=== PATIENT | male | born 1960 | race Caucasian/White ===

== ENCOUNTER 2018-08-04 06:57 | Day surgery (SDC) | payer OTHER ==
[~2018-08-04 06:57] MED LIST: Lactated Ringers 1,000 ML IV SCH
--- NOTE | 2018-08-04 07:44 | PCM.PREANE ---
Preanesthetic Assessment - Anesthesia/Transfusion/Family Hx Anesthesia History: Prior Anesthesia Without Reaction Family History of Anesthesia Reaction: No Transfusion History: No Prior Transfusion(s) Intubation History: Unknown - Review of Systems General: No Symptoms Pulmonary: No Symptoms Cardiovascular: No Symptoms Gastrointestinal: Difficulty Swallowing Neurological: No Symptoms Other: Reports: None - Physical Assessment O2 Sat by Pulse Oximetry: 97 Respiratory Rate: 16 Vital Signs: Last Vital Signs Temp 36.4 C 08/04/18 07:21 Pulse 57 L 08/04/18 07:21 Resp 16 08/04/18 07:21 BP 113/70 08/04/18 07:21 Pulse Ox 97 08/04/18 07:21 Height: 1.88 m Weight: 93.894 kg ASA Class: 2 Mental Status: Alert & Oriented x3 Airway Class: Mallampati = 2 Dentition: Reports: Normal Dentition, Romney(s) (x1 upper front) Thyro-Mental Finger Breadths: 3 Mouth Opening Finger Breadths: 3 ROM/Head Extension: Full Lungs: Clear to Auscultation, Normal Respiratory Effort Cardiovascular: Regular Rate, Regular Rhythm - Allergies Allergies/Adverse Reactions: Allergies Allergy/AdvReac Type Severity Reaction Status Date / Time No Known Allergies Allergy Verified 08/01/18 11:27 - Blood Blood Available: No - Anesthesia Plan Pre-Op Medication Ordered: None - Acknowledgements Anesthesia Type Planned: MAC Pt an Appropriate Candidate for the Planned Anesthesia: Yes Alternatives and Risks of Anesthesia Discussed w Pt/Guardian: Yes Pt/Guardian Understands and Agrees with Anesthesia Plan: Yes PreAnesthesia Questionnaire HEENT History: Reports: Allergic Rhinitis, Other (See Below) Other HEENT History: wears glasses, hx of dysphagia, has upper and lower partial dentures (permanent) Cardiovascular History: Reports: High Cholesterol, Other (See Below) Other Cardiovascular History: hx of Rheumatic fever Gastrointestinal History: Reports: GERD, Other (See Below) (h/o intestinal inflamation 4 years ago, now difficulty swallowing) Musculoskeletal History: Reports: Arthritis, Fracture Other Musculoskeletal History: hx of arthritis in shoulders, hx of fx right hand and left ankle (no hardware) Dermatologic History: Reports: Eczema - Past Surgical History GI Surgical History: Reports: Colonoscopy - SUBSTANCE USE Smoking Status *Q: Former Smoker Tobacco Use Within Last Twelve Months: No Recreational Drug Use History: Yes - HOME MEDS Home Medications: Home Meds Ciclopirox/Ure/Camph/Menth/Euc [Ciclopirox 8% Treatment Kit] 1 applic TOP ASDIRECTED 08/01/18 [History] Fluticasone Propionate [Flovent HFA] 2 spray NASBOTH BID PRN 08/01/18 [History] Meloxicam 15 mg PO DAILY PRN 08/01/18 [History] Omeprazole 40 mg PO DAILY 08/01/18 [History] Sildenafil Citrate [Sildenafil] 20 mg PO ASDIRECTED PRN 08/01/18 [History] - CURRENT (IN HOUSE) MEDS Current Meds: Current Medications Lactated Ringer's (Ringers, Lactated) 1,000 mls @ 125 mls/hr IV ASDIRECTED [facility] Last Admin: 08/04/18 07:24 Dose: 125 mls/hr
[2018-08-04] MEDS ORDERED: Midazolam 1 MG/ML 2 ML SDV ONE (09:06)
[2018-08-04] MEDS ORDERED: fentaNYL 100 MCG/2 ML SDV ONE (09:07)
[2018-08-04] MEDS ORDERED: Propofol 200 MG/20 ML SDV ONE (09:08)
[2018-08-04] MEDS ORDERED: Lidocaine 2% 5 ML SDV ONE (09:09)
[2018-08-04] MEDS ORDERED: Lactated Ringers 1,000 ML IV SCH (09:30)
--- NOTE | 2018-08-04 09:32 | PCM.OPNOTE ---
- General Post-Op/Procedure Note Date of Surgery/Procedure: 08/04/18 Operative Procedure(s): Esophagogastroduodenoscopy with gastric esophageal ulcer and mid esophageal biopsies Pre Op Diagnosis: Progressive dysphasia. Post-Op Diagnosis: Cljz-vn-xdrbdxyh gastritis. Distal esophageal ulcer. Changes suggestive of Pang's esophagus extending up to 30 cm from the incisors. Anesthesia Technique: MAC (ASA II) Primary Surgeon: Cristino Rosas Condition: Good Free Text/Narrative:: DICTATION [id number] CPT CODE [id number]
[2018-08-04 09:53] VITALS: BP 119/77
--- NOTE | 2018-08-04 12:13 | OR ---
SURGEON: Cristino Rosas M.D. DATE OF PROCEDURE: 08/04/2018 OPERATIONS PERFORMED: Esophagogastroduodenoscopy with gastric biopsies, biopsy of esophageal ulcer, and biopsy of esophagus at 30 cm. PREOPERATIVE DIAGNOSIS: Dysphagia with frequent food regurgitation. POSTOPERATIVE DIAGNOSES: 1. Oavp-oy-jknvdxti gastritis. 2. Esophageal ulcer. 3. Changes suggestive of Pang esophagus. DESCRIPTION OF PROCEDURE: The patient was taken to the endoscopy room and positioned on the endoscopy table in the supine position. Time-out was called for appropriate identification of patient and procedure. Monitored anesthesia care was provided. The bite block was placed between the patient's teeth. The gastroscope was inserted through the bite block into the oropharynx and advanced without difficulty through the esophagus and stomach into the duodenum where examination was carried out in a retrograde fashion. There was no obstruction to passage of the scope; therefore, no significant esophageal stricture. The duodenum shows no acute inflammatory changes or ulcerations. Stomach does show ojin-os-tytfxycf chronic gastritis. Antral biopsies were obtained to look for the presence of Helicobacter pylori. The gastroscope was retroflexed to visualize the proximal stomach. There was no significant hiatal hernia. The gastroscope was straightened and slowly withdrawn, carefully visualizing the greater and lesser curvatures. No ulcers or tumors were noted. The gastroscope was withdrawn into the distal esophagus where an esophageal ulcer was noted. Biopsies of this area were obtained. The patient does demonstrate significant columnarization of the distal esophagus, and there does not appear to be any significant squamous epithelium at that level. The squamocolumnar junction is at 30 cm and separate biopsies of this area were obtained. The more proximal esophagus shows healthy appearing mucosa. Despite multiple attempts, I was not able to visualize the vocal cords. The gastroscope was then withdrawn. The patient tolerated the procedure well and was taken to recovery room in stable condition. CINDY / DENA /[id number]
== END 2018-08-04 10:11 | disposition home or self-care (01) ==
LOC: MW.SDS 06:57
PROVIDERS: ATTEND Surgery
DX: K22.10 Ulcer of esophagus without bleeding (principal); K29.50 Unspecified chronic gastritis without bleeding; B96.81 Helicobacter pylori [H. pylori] as the cause of diseases classified elsewhere; K21.9 Gastro-esophageal reflux disease without esophagitis; E78.00 Pure hypercholesterolemia, unspecified; Z87.891 Personal history of nicotine dependence; Z79.899 Other long term (current) drug therapy
CPT/HCPCS: 43239; J2001; J2250; J2704; J3010; J7120; 88305; 88312

== ENCOUNTER 2018-12-19 10:33 | Day surgery (SDC) | payer OTHER ==
[~2018-12-19 10:33] MED LIST changes: +Midazolam 1 MG/ML 2 ML SDV ONE; +Ondansetron 4 MG/2 ML SDV ONE; +Propofol 200 MG/20 ML SDV ONE; +Sodium Chloride 0.9% 1,000 ML IV ONE; +fentaNYL 100 MCG/2 ML SDV ONE
--- NOTE | 2018-12-19 11:37 | PCM.PREANE ---
Preanesthetic Assessment - Anesthesia/Transfusion/Family Hx Anesthesia History: Prior Anesthesia Without Reaction Family History of Anesthesia Reaction: No Transfusion History: No Prior Transfusion(s) Intubation History: Unknown - Review of Systems General: No Symptoms Pulmonary: No Symptoms Cardiovascular: No Symptoms Gastrointestinal: Difficulty Swallowing Neurological: No Symptoms Other: Reports: None - Physical Assessment O2 Sat by Pulse Oximetry: 94 Respiratory Rate: 16 Vital Signs: Last Vital Signs Temp 36.0 C 12/19/18 11:12 Pulse 60 12/19/18 11:12 Resp 16 12/19/18 11:12 BP 115/73 12/19/18 11:12 Pulse Ox 94 L 12/19/18 11:12 Height: 6 ft 2 in Weight: 95.254 kg ASA Class: 2 Mental Status: Alert & Oriented x3 Airway Class: Mallampati = 2 Dentition: Reports: Normal Dentition Thyro-Mental Finger Breadths: 3 Mouth Opening Finger Breadths: 2 ROM/Head Extension: Full Lungs: Clear to Auscultation, Normal Respiratory Effort Cardiovascular: Regular Rate, Regular Rhythm - Allergies Allergies/Adverse Reactions: Allergies Allergy/AdvReac Type Severity Reaction Status Date / Time No Known Allergies Allergy Verified 12/19/18 11:09 - Blood Blood Available: No - Anesthesia Plan Pre-Op Medication Ordered: None - Acknowledgements Anesthesia Type Planned: MAC Pt an Appropriate Candidate for the Planned Anesthesia: Yes Alternatives and Risks of Anesthesia Discussed w Pt/Guardian: Yes Pt/Guardian Understands and Agrees with Anesthesia Plan: Yes PreAnesthesia Questionnaire HEENT History: Reports: Allergic Rhinitis, Other (See Below) Other HEENT History: wears glasses, hx of dysphagia, has upper and lower partial dentures (permanent) Cardiovascular History: Reports: High Cholesterol, Other (See Below) Other Cardiovascular History: hx of Rheumatic fever Gastrointestinal History: Reports: GERD, Helicobacter Pylori, Other (See Below) Other Gastrointestinal History: hx of esophageal ulcer, suggestive Berett's esophagus Musculoskeletal History: Reports: Arthritis, Fracture Other Musculoskeletal History: hx of arthritis in shoulders, hx of fx right hand and left ankle (no hardware) Dermatologic History: Reports: Eczema - Past Surgical History GI Surgical History: Reports: Colonoscopy, EGD (07/25) - SUBSTANCE USE Smoking Status *Q: Former Smoker (quit 25 years ago) Tobacco Use Within Last Twelve Months: No Recreational Drug Use History: No - HOME MEDS Home Medications: Home Meds Fluticasone Propionate [Flovent HFA] 2 spray NASBOTH BID PRN 08/01/18 [History] Meloxicam 15 mg PO DAILY PRN 08/01/18 [History] Omeprazole 40 mg PO DAILY 08/01/18 [History] Sildenafil Citrate 20 mg PO ASDIRECTED PRN 08/01/18 [History] - CURRENT (IN HOUSE) MEDS Current Meds: Current Medications Lactated Ringer's (Ringers, Lactated) 1,000 mls @ 125 mls/hr IV ASDIRECTED [facility] Last Admin: 12/19/18 11:08 Dose: 125 mls/hr Discontinued Medications Fentanyl (Sublimaze) Confirm Administered Dose 100 mcg .ROUTE .STK-MED ONE Stop: 12/19/18 07:54 Lidocaine HCl (Xylocaine-Mpf 1%) Confirm Administered Dose 5 mls @ as directed .ROUTE .STK-MED ONE Stop: 12/19/18 07:53 Midazolam HCl (Versed 1 Mg/Ml) Confirm Administered Dose 2 mg .ROUTE .STK-MED ONE Stop: 12/19/18 07:54 Ondansetron HCl (Zofran) Confirm Administered Dose 4 mg .ROUTE .STK-MED ONE Stop: 12/19/18 07:53 Propofol (Diprivan 20 Ml) Confirm Administered Dose 200 mg .ROUTE .STK-MED ONE Stop: 12/19/18 07:54
--- NOTE | 2018-12-19 13:35 | PCM.OPNOTE ---
- General Post-Op/Procedure Note Date of Surgery/Procedure: 12/19/18 Operative Procedure(s): Esophagogastroduodenoscopy with balloon dilatation of esophageal stricture to 54 [place] and gastric and esophageal biopsies Pre Op Diagnosis: Progressive dysphasia. History of esophageal ulcer. Pang' s esophagus. Post-Op Diagnosis: Esophageal stricture at 40 cm. Acute and chronic gastritis. Anesthesia Technique: MAC (ASA II) Primary Surgeon: Cristino Rosas Condition: Good Free Text/Narrative:: DICTATION [id number] CPT CODE [id number]
--- NOTE | 2018-12-19 13:38 | PCM.POSTAN ---
POST ANESTHESIA ASSESSMENT - MENTAL STATUS Mental Status: Alert, Oriented - RESPIRATORY Respiratory Status: Respiratory Rate WNL, Airway Patent, O2 Saturation Stable - CARDIOVASCULAR CV Status: Pulse Rate WNL, Blood Pressure Stable - GASTROINTESTINAL GI Status: No Symptoms - PAIN Pain Score: 0 - POST OP HYDRATION Hydration Status: Adequate & Stable - OBSERVATIONS Free Text/Narrative:: No anesthesia problems, patiend skipped recovery room stage of postoperative care.
[2018-12-19] MEDS ORDERED: Lactated Ringers 1,000 ML IV SCH (13:45)
[2018-12-19 15:25] VITALS: BP 111/71
--- NOTE | 2018-12-19 16:55 | OR ---
SURGEON: Cristino Rosas M.D. DATE OF PROCEDURE: 12/19/2018 OPERATION PERFORMED: Esophagogastroduodenoscopy with balloon esophageal dilatation to 54-[place]an and gastric and esophageal biopsies. PRIMARY SURGEON: Cristino Rosas MD. ANESTHESIA: MAC. ASA CLASSIFICATION: II. PREOPERATIVE DIAGNOSES: 1. History of esophageal ulcer and suggestion of Pang's esophagus. 2. Dysphagia. POSTOPERATIVE DIAGNOSES: 1. Esophageal stricture at 40 cm. 2. Acute and chronic gastritis. DESCRIPTION OF PROCEDURE: The patient was taken to the endoscopy room and positioned on the endoscopy table in the supine position. Time-out was called for appropriate identification of the patient and procedure. Monitored anesthesia care was provided. The bite block was placed between the patient's teeth. The gastroscope was inserted through the bite block and advanced to the distal esophagus. Despite multiple maneuvers, I could not advance the gastroscope through the esophageal stricture, which was noted to be at 40 cm. It was necessary to perform balloon dilatation to 54-[place]an, which then allowed us to maneuver the gastroscope beyond the stricture, through the stomach, into the duodenum. Examination was now carried out in a retrograde fashion. The duodenum showed no acute inflammatory changes. The stomach does show a moderate acute and chronic gastritis. Again, antral biopsies were obtained to look for the presence of Helicobacter pylori. The gastroscope was retroflexed to visualize the proximal stomach. No acute ulcerations were noted and no tumors were noted proximally. The patient does appear to have a small hiatal hernia. The gastroscope was then straightened and slowly withdrawn, carefully visualizing the greater and lesser curvatures. Once the gastroscope was withdrawn into the distal esophagus, biopsies were obtained at 40 cm from the incisors. This was above the GE junction. The mid and proximal esophagus demonstrated good contractility. No lesions were identified. The vocal cords were visualized as the scope was withdrawn and noted to move symmetrically. The gastroscope was then removed with the patient having tolerated the procedure well. He was taken to recovery room in stable condition. CINDY / DENA /[id number]
== END 2018-12-19 14:05 | disposition home or self-care (01) ==
LOC: MW.SDS 10:33
PROVIDERS: ATTEND Surgery
DX: K22.70 Barrett's esophagus without dysplasia (principal); K29.00 Acute gastritis without bleeding; K29.50 Unspecified chronic gastritis without bleeding; K22.2 Esophageal obstruction; E78.00 Pure hypercholesterolemia, unspecified; Z87.891 Personal history of nicotine dependence; Z79.899 Other long term (current) drug therapy
CPT/HCPCS: 43233; 43239; C1726; J2001; J2250; J2405; J2704; J3010; J7120; 88305; 88312

== ENCOUNTER 2019-03-10 17:31 | Emergency (ER) | payer OTHER ==
[2019-03-10 17:55] VITALS: BP 134/88; PULSE 64
--- NOTE | 2019-03-10 18:16 | EDM.PDOC ---
ED HPI GENERAL MEDICAL PROBLEM - General Chief Complaint: ENT Problem Stated Complaint: MOUTH INFECTION Time Seen by Provider: 03/10/19 18:09 Source of Information: Reports: Patient History Limitations: Reports: No Limitations - History of Present Illness INITIAL COMMENTS - FREE TEXT/NARRATIVE: History of present illness: []Patient had a full sore on the roof of his mouth and started swishing peroxide which made it more sores, under his tongue and under his lower lip. Review of systems: As per history of present illness and below otherwise all systems reviewed and negative. Past medical history: As per history of present illness and as reviewed below otherwise noncontributory. Surgical history: As per history of present illness and as reviewed below otherwise noncontributory. Social history: No reported history of drug or alcohol abuse. Family history: As per history of present illness and as reviewed below otherwise noncontributory. Physical exam: General: Well developed, well nourished in NAD HEENT: Atraumatic, normocephalic, pupils reactive, negative for conjunctival pallor or scleral icterus, mucous membranes moist, throat clear, neck supple, nontender, trachea midline. Multiple aphthous ulcers 1-3 mm in size on an erythematous base with a white pale center. Lungs: Clear to auscultation, breath sounds equal bilaterally, chest nontender. Heart: S1S2, regular, negative for clicks, rubs, or JVD. Abdomen: NABS, Soft, nondistended, nontender. Negative for masses or hepatosplenomegaly. Negative for costovertebral tenderness. Pelvis: Stable nontender. Genitourinary: Deferred. Rectal: Deferred. Extremities: Atraumatic, negative for cords or calf pain. Neurovascular unremarkable. Neuro: Awake, alert, oriented. Cranial nerves II through XII unremarkable. Cerebellum unremarkable. Motor and sensory unremarkable throughout. Exam nonfocal. Skin:warm and dry Diagnostics: None Therapeutics: None ED Course: stable Impression: Aphthous ulcers Prescriptions: Magic mouthwash Plan: Take meds as directed, follow up with your primary care physician, return to ER if symptoms worsen or change. Definitive disposition and diagnosis as appropriate pending reevaluation and review of above. Oral/Mouth Pain Score (Numeric/FACES): 3 - Related Data Allergies Allergy/AdvReac Type Severity Reaction Status Date / Time No Known Allergies Allergy Verified 03/10/19 17:55 Home Meds: Home Meds Fluticasone Propionate [Flovent HFA] 2 spray NASBOTH BID PRN 08/01/18 [History] Meloxicam 15 mg PO DAILY PRN 08/01/18 [History] Omeprazole 40 mg PO DAILY 08/01/18 [History] Diphenhyd/Lidocaine/Nystatin [First-Bxn Mouthwash] 15 ml MM TID #1 bottle [Rx] Past Medical History HEENT History: Reports: Allergic Rhinitis, Other (See Below) Other HEENT History: wears glasses, hx of dysphagia, has upper and lower partial dentures (permanent) Cardiovascular History: Reports: High Cholesterol, Other (See Below) Other Cardiovascular History: hx of Rheumatic fever Gastrointestinal History: Reports: GERD, Helicobacter Pylori, Other (See Below) Other Gastrointestinal History: hx of esophageal ulcer, suggestive Berett's esophagus Musculoskeletal History: Reports: Arthritis, Fracture Other Musculoskeletal History: hx of arthritis in shoulders, hx of fx right hand and left ankle (no hardware) Dermatologic History: Reports: Eczema - Past Surgical History GI Surgical History: Reports: Colonoscopy, EGD Male Surgical History: Reports: Penile Surgery Social & Family History - Family History Family Medical History: Noncontributory - Tobacco Use Smoking Status *Q: Never Smoker - Recreational Drug Use Recreational Drug Use: No ED ROS ENT - Review of Systems Review Of Systems: See Below ED EXAM, ENT - Physical Exam Exam: See Below Course - Vital Signs Last Recorded V/S: Last Vital Signs Temp 97.7 F 03/10/19 17:52 Pulse 64 03/10/19 17:52 Resp 18 03/10/19 17:52 BP 134/88 03/10/19 17:52 Pulse Ox 96 03/10/19 17:52 Departure - Departure Time of Disposition: 18:18 Disposition: Home, Self-Care 01 Condition: Good Clinical Impression: Aphthous ulcer of mouth - Discharge Information *PRESCRIPTION DRUG MONITORING PROGRAM REVIEWED*: No *COPY OF PRESCRIPTION DRUG MONITORING REPORT IN PATIENT RUBENS: No Prescriptions: Diphenhyd/Lidocaine/Nystatin [First-Bxn Mouthwash] 15 ml MM TID #1 bottle Referrals: Sameera Lyles NP [Primary Care Provider] - Forms: ED Department Discharge Additional Instructions: The following information is given to patients seen in the emergency department who are being discharged to home. This information is to outline your options for follow-up care. We provide all patients seen in our emergency department with a follow-up referral. The need for follow-up, as well as the timing and circumstances, are variable depending upon the specifics of your emergency department visit. If you don't have a primary care physician on staff, we will provide you with a referral. We always advise you to contact your personal physician following an emergency department visit to inform them of the circumstance of the visit and for follow-up with them and/or the need for any referrals to a consulting specialist. The emergency department will also refer you to a specialist when appropriate. This referral assures that you have the opportunity for follow-up care with a specialist. All of these measure are taken in an effort to provide you with optimal care, which includes your follow-up. Under all circumstances we always encourage you to contact your private physician who remains a resource for coordinating your care. When calling for follow-up care, please make the office aware that this follow-up is from your recent emergency room visit. If for any reason you are refused follow-up, please contact the [facility] Emergency Department at and asked to speak to the emergency department charge nurse. Take meds as directed, follow up with your primary care physician, return to ER if symptoms worsen or change. [facility] [address] [place] [id number]
== END 2019-03-10 18:30 | disposition home or self-care (01) ==
LOC: MW.ED 17:31
DX: K12.0 Recurrent oral aphthae (principal); K21.9 Gastro-esophageal reflux disease without esophagitis
CPT/HCPCS: 99282

== ENCOUNTER 2019-03-21 14:09 | Emergency (ER) | payer OTHER ==
--- NOTE | 2019-03-21 14:29 | EDM.PDOC ---
ED HPI GENERAL MEDICAL PROBLEM - General Chief Complaint: Genitourinary Problem Stated Complaint: UROLOGY Time Seen by Provider: 03/21/19 14:29 Source of Information: Reports: Patient History Limitations: Reports: No Limitations - History of Present Illness INITIAL COMMENTS - FREE TEXT/NARRATIVE: HISTORY AND PHYSICAL: History of present illness: Patient is a 59-year-old male presents to the ED with concern of possible penile fracture. 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 He states he does traction exercises and this morning while doing the stretching he had a sharp pain in the penis. Shortly afterwards he developed bruising in the penis. He states it is no longer painful at this time. He sees Dr. Vaca at [facility] and does not have a follow up scheduled at this time. Review of systems: As per history of present illness and below otherwise all systems reviewed and negative. Past medical history: As per history of present illness and as reviewed below otherwise noncontributory. Surgical history: As per history of present illness and as reviewed below otherwise noncontributory. Social history: No reported history of drug or alcohol abuse. Family history: As per history of present illness and as reviewed below otherwise noncontributory. Physical exam: General: Patient sitting comfortably in no acute distress and nontoxic appearing HEENT: Atraumatic, normocephalic, pupils reactive, negative for conjunctival pallor or scleral icterus, mucous membranes moist, throat clear, neck supple, nontender, trachea midline. No meningeal signs. Lungs: Clear to auscultation, breath sounds equal bilaterally, chest nontender. Heart: S1S2, regular, negative for clicks, rubs, or overt murmur. Abdomen: Soft, nondistended, nontender. Negative for masses or hepatosplenomegaly. Negative for costovertebral tenderness. No rigidity, rebound , guarding. Pelvis: Stable nontender. Genitourinary: Deferred. Rectal: Deferred. Extremities: Atraumatic, negative for cords or calf pain. Neurovascular unremarkable. Neuro: Awake, alert, oriented. Cranial nerves II through XII unremarkable. Cerebellum unremarkable. Motor and sensory unremarkable throughout. Exam nonfocal. Notes: Discussed with Dr. Shen, urology at [facility], he advised patient stop traction exercises at this time and follow up with Dr. Ritchie. Diagnostics: [employer]: [] Prescriptions: Impression: Penis injury and ecchymosis Plan: Alternate tylenol and ibuprofen as needed for discomfort Avoid traction for the time being Follow up with urology Return to ED as needed as discussed Definitive disposition and diagnosis as appropriate pending reevaluation and review of above. - Related Data Allergies Allergy/AdvReac Type Severity Reaction Status Date / Time No Known Allergies Allergy Verified 03/21/19 14:18 Home Meds: Home Meds Fluticasone Propionate [Flovent HFA] 2 spray NASBOTH BID PRN 08/01/18 [History] Meloxicam 15 mg PO DAILY PRN 08/01/18 [History] Omeprazole 40 mg PO DAILY 08/01/18 [History] Past Medical History HEENT History: Reports: Allergic Rhinitis, Other (See Below) Other HEENT History: wears glasses, hx of dysphagia, has upper and lower partial dentures (permanent) Cardiovascular History: Reports: High Cholesterol, Other (See Below) Other Cardiovascular History: hx of Rheumatic fever Gastrointestinal History: Reports: GERD, Helicobacter Pylori, Other (See Below) Other Gastrointestinal History: hx of esophageal ulcer, suggestive Berett's esophagus Musculoskeletal History: Reports: Arthritis, Fracture Other Musculoskeletal History: hx of arthritis in shoulders, hx of fx right hand and left ankle (no hardware) Dermatologic History: Reports: Eczema - Infectious Disease History Infectious Disease History: Reports: Chicken Pox, Measles, Mumps, Other (See Below) Other Infectious Disease History: rheumatic fever - Past Surgical History GI Surgical History: Reports: Colonoscopy, EGD Male Surgical History: Reports: Penile Surgery Social & Family History - Family History Family Medical History: Noncontributory - Tobacco Use Smoking Status *Q: Never Smoker - Recreational Drug Use Recreational Drug Use: No ED ROS GENERAL - Review of Systems Review Of Systems: ROS reveals no pertinent complaints other than HPI. ED EXAM, RENAL/ - Physical Exam Exam: See Below (see dictation) Course - Vital Signs Last Recorded V/S: Last Vital Signs Temp 96.3 F 03/21/19 14:16 Pulse 76 03/21/19 15:45 Resp 14 03/21/19 15:45 BP 132/82 03/21/19 15:45 Pulse Ox 97 03/21/19 15:45 - Orders/Labs/Meds Labs: Laboratory Tests 03/21/19 Range/Units 15:04 Urine Color YELLOW Urine Appearance CLEAR Urine pH 6.0 (5.0-8.0) Ur Specific [place] 1.025 (1.001-1.035) Urine Protein NEGATIVE (NEGATIVE) mg/dL Urine Glucose (UA) NEGATIVE (NEGATIVE) mg/dL Urine Ketones NEGATIVE (NEGATIVE) mg/dL Urine Occult Blood NEGATIVE (NEGATIVE) Urine Nitrite NEGATIVE (NEGATIVE) Urine Bilirubin NEGATIVE (NEGATIVE) Urine Urobilinogen 0.2 (<2.0) EU/dL Ur Leukocyte Esterase NEGATIVE (NEGATIVE) Departure - Departure Time of Disposition: 15:44 Disposition: Home, Self-Care 01 Condition: Good Clinical Impression: Penis injury - Discharge Information Instructions: Medical Screening Exam Referrals: Sameera Lyles NP [Primary Care Provider] - Forms: ED Department Discharge Additional Instructions: The following information is given to patients seen in the emergency department who are being discharged to home. This information is to outline your options for follow-up care. We provide all patients seen in our emergency department with a follow-up referral. The need for follow-up, as well as the timing and circumstances, are variable depending upon the specifics of your emergency department visit. If you don't have a primary care physician on staff, we will provide you with a referral. We always advise you to contact your personal physician following an emergency department visit to inform them of the circumstance of the visit and for follow-up with them and/or the need for any referrals to a consulting specialist. The emergency department will also refer you to a specialist when appropriate. This referral assures that you have the opportunity for follow-up care with a specialist. All of these measure are taken in an effort to provide you with optimal care, which includes your follow-up. Under all circumstances we always encourage you to contact your private physician who remains a resource for coordinating your care. When calling for follow-up care, please make the office aware that this follow-up is from your recent emergency room visit. If for any reason you are refused follow-up, please contact the [facility] Emergency Department at and asked to speak to the emergency department charge nurse. [facility] [address] [place] [id number] [facility] [address] [place] [id number] Alternate tylenol and ibuprofen as needed for discomfort Avoid traction for the time being Follow up with urology Return to ED as needed as discussed
[2019-03-21 15:56] VITALS: BP 132/82; PULSE 76
== END 2019-03-21 15:55 | disposition home or self-care (01) ==
LOC: MW.ED 14:09
DX: S30.21XA Contusion of penis, initial encounter (principal); K21.9 Gastro-esophageal reflux disease without esophagitis; Z79.899 Other long term (current) drug therapy; X58.XXXA Exposure to other specified factors, initial encounter; Y93.89 Activity, other specified
CPT/HCPCS: 81003; 99282; 99283

== ENCOUNTER 2019-08-31 07:39 | Day surgery (SDC) | payer OTHER ==
[~2019-08-31 07:39] MED LIST changes: -Midazolam 1 MG/ML 2 ML SDV ONE; -Ondansetron 4 MG/2 ML SDV ONE; -Propofol 200 MG/20 ML SDV ONE; -Sodium Chloride 0.9% 1,000 ML IV ONE; -fentaNYL 100 MCG/2 ML SDV ONE
--- NOTE | 2019-08-31 08:14 | PCM.PREANE ---
Preanesthetic Assessment - Anesthesia/Transfusion/Family Hx Anesthesia History: Prior Anesthesia Without Reaction Family History of Anesthesia Reaction: No Transfusion History: No Prior Transfusion(s) Intubation History: Unknown - Review of Systems General: No Symptoms Pulmonary: No Symptoms Cardiovascular: No Symptoms Gastrointestinal: Difficulty Swallowing Neurological: No Symptoms Other: Reports: None - Physical Assessment Height: 6 ft 2 in Weight: 96.615 kg ASA Class: 2 Mental Status: Alert & Oriented x3 Airway Class: Mallampati = 2 Dentition: Reports: Normal Dentition, Bridge (right lower and left upper) Thyro-Mental Finger Breadths: 3 Mouth Opening Finger Breadths: 2 (small mouth) ROM/Head Extension: Full Lungs: Clear to Auscultation, Normal Respiratory Effort Cardiovascular: Regular Rate, Regular Rhythm - Allergies Allergies/Adverse Reactions: Allergies Allergy/AdvReac Type Severity Reaction Status Date / Time No Known Allergies Allergy Verified 08/29/19 15:26 - Blood Blood Available: No - Anesthesia Plan Pre-Op Medication Ordered: None - Acknowledgements Anesthesia Type Planned: MAC Pt an Appropriate Candidate for the Planned Anesthesia: Yes Alternatives and Risks of Anesthesia Discussed w Pt/Guardian: Yes Pt/Guardian Understands and Agrees with Anesthesia Plan: Yes PreAnesthesia Questionnaire HEENT History: Reports: Other (See Below) Other HEENT History: wears glasses, has upper left permanent partial denture and lower right permanent partial denture Cardiovascular History: Reports: High Cholesterol, Other (See Below) Other Cardiovascular History: hx of Rheumatic fever Gastrointestinal History: Reports: Helicobacter Pylori, Other (See Below) Other Gastrointestinal History: gx of dysphagia, Barretts Esophagus Musculoskeletal History: Reports: Arthritis, Fracture Other Musculoskeletal History: arthritis in hands and shoulders, hx of fx right hand and left ankle (no hardware) Neurological History: Reports: Headaches, Chronic Other Neuro History: frequent sinus headaches Dermatologic History: Reports: Eczema - Infectious Disease History Infectious Disease History: Reports: Chicken Pox, Measles, Mumps, Other (See Below) Other Infectious Disease History: rheumatic fever - Past Surgical History Head Surgeries/Procedures: Reports: None GI Surgical History: Reports: Colonoscopy, EGD (x2 last one 04/24 with dilatation), Esophageal Dilatation - SUBSTANCE USE Smoking Status *Q: Former Smoker (quit ') Tobacco Use Within Last Twelve Months: No Recreational Drug Use History: Yes - HOME MEDS Home Medications: Home Meds Fluticasone Propionate [Flovent HFA] 2 spray NASBOTH BID PRN 08/01/18 [History] Meloxicam 15 mg PO DAILY PRN 08/01/18 [History] Omeprazole 40 mg PO DAILY 08/01/18 [History] Turmeric 400 mg PO DAILY 08/29/19 [History] - CURRENT (IN HOUSE) MEDS Current Meds: Current Medications Lactated Ringer's (Ringers, Lactated) 1,000 mls @ 125 mls/hr IV ASDIRECTED LYLE
[2019-08-31] MEDS ORDERED: Propofol 200 MG/20 ML SDV ONE (09:38)
[2019-08-31] MEDS ORDERED: Lidocaine 2% 5 ML SDV ONE (09:38)
--- NOTE | 2019-08-31 10:21 | PCM.OPNOTE ---
- General Post-Op/Procedure Note Date of Surgery/Procedure: 08/31/19 Operative Procedure(s): Esophagogastroduodenoscopy with distal gastric and esophageal biopsies at 28 cm. Pre Op Diagnosis: Dysphagia. History of Pang's esophagus. Post-Op Diagnosis: Chronic gastritis. Distal esophagitis with columnar changes to 28 cm. Anesthesia Technique: MAC (ASA II) Primary Surgeon: Cristino Rosas Condition: Good Free Text/Narrative:: DICTATION 886285 CPT CODE 79649
[2019-08-31] MEDS ORDERED: Lactated Ringers 1,000 ML IV SCH (10:30)
--- NOTE | 2019-08-31 10:34 | PCM.POSTAN ---
POST ANESTHESIA ASSESSMENT - MENTAL STATUS Mental Status: Alert, Oriented - VITAL SIGNS Vital Signs: Last Vital Signs Temp 36.1 C 08/31/19 07:50 Pulse 56 L 08/31/19 10:30 Resp 14 08/31/19 10:30 BP 92/48 L 08/31/19 10:30 Pulse Ox 93 L 08/31/19 10:30 - RESPIRATORY Respiratory Status: Respiratory Rate WNL, Airway Patent, O2 Saturation Stable - CARDIOVASCULAR CV Status: Pulse Rate WNL, Blood Pressure Stable - GASTROINTESTINAL GI Status: No Symptoms - POST OP HYDRATION Hydration Status: Adequate & Stable
--- NOTE | 2019-08-31 10:53 | OR ---
SURGEON: Cristino Rosas M.D. DATE OF PROCEDURE: 08/31/2019 OPERATION PERFORMED: Esophagogastroduodenoscopy with gastric and mid esophageal biopsies. PRIMARY SURGEON: Cristino Rosas M.D. ANESTHESIA: MAC. ASA CLASSIFICATION: II. PREOPERATIVE DIAGNOSES: 1. History of Pang esophagus. 2. Persistent dysphagia. POSTOPERATIVE DIAGNOSES: 1. Chronic gastritis. 2. Esophagitis. 3. 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 4. Hiatal hernia. DESCRIPTION OF PROCEDURE: The patient was taken to the endoscopy room, positioned on the endoscopy table in the left lateral decubitus position. Time-out was called for appropriate identification of the patient and procedure. Monitored anesthesia care was provided. The bite block was placed between the patient's teeth. The gastroscope was inserted through the bite block and advanced without difficulty through the esophagus and stomach into the duodenum, where examination was now carried out in a retrograde fashion. The duodenum shows no acute inflammatory changes or ulcerations. The distal stomach does show [id number] gastritis. Antral biopsies were obtained to rule out Helicobacter pylori. The gastroscope was retroflexed to visualize the proximal stomach. The patient does have a hiatal hernia. The scope was then withdrawn through the hiatal hernia into the distal esophagus. Distal esophageal mucosal changes were noted all the way to 28 cm from the incisors. Biopsies at 28 cm were obtained, which do appear to be the transition point between columnar appearing mucosa and typical esophageal mucosa. The gastroscope was then slowly withdrawn. The vocal cords had briefly been visualized as the scope was inserted. No vocal cord lesions were identified. The gastroscope was then removed with the patient having tolerated the procedure well. He was taken to recovery room in stable condition. No esophageal strictures noted. CINDY / DENA /[id number]
--- NOTE | 2019-08-31 11:02 | PCM48HPAN ---
Post Anesthesia Note - EVALUATION WITHIN 48HRS OF ANESTHETIC Vital Signs in Normal Range: Yes Patient Participated in Evaluation: Yes Respiratory Function Stable: Yes Airway Patent: Yes Cardiovascular Function Stable: Yes Hydration Status Stable: Yes Pain Control Satisfactory: Yes Nausea and Vomiting Control Satisfactory: Yes Mental Status Recovered: Yes Vital Signs: Last Vital Signs Temp 36.9 C 08/31/19 10:36 Pulse 61 08/31/19 10:36 Resp 14 08/31/19 10:36 BP 112/71 08/31/19 10:36 Pulse Ox 95 08/31/19 10:36 - COMMENTS/OBSERVATIONS Free Text/Narrative:: No anesthesia problems
[2019-08-31 11:05] VITALS: BP 122/52; PULSE 62
== END 2019-08-31 11:15 | disposition home or self-care (01) ==
LOC: MW.SDS 07:39
PROVIDERS: ATTEND Surgery
DX: K29.50 Unspecified chronic gastritis without bleeding (principal); K20.9 Esophagitis, unspecified; K44.9 Diaphragmatic hernia without obstruction or gangrene; E78.00 Pure hypercholesterolemia, unspecified; Z79.899 Other long term (current) drug therapy; Z87.19 Personal history of other diseases of the digestive system; Z87.891 Personal history of nicotine dependence; Z98.890 Other specified postprocedural states; Z72.89 Other problems related to lifestyle
CPT/HCPCS: 43239; J2001; J2704; J7120; 00731; 88305; 88312

== ENCOUNTER 2020-10-07 14:28 | Day surgery (SDC) | payer OTHER ==
[2020-10-07] MEDS ORDERED: Propofol 200 MG/20 ML SDV ONE (14:39)
[2020-10-07] MEDS ORDERED: Ondansetron 4 MG/2 ML SDV ONE (14:43)
[2020-10-07] MEDS ORDERED: Midazolam 1 MG/ML 2 ML SDV ONE (14:43)
[2020-10-07] MEDS ORDERED: Succinylcholine/Sod PF 100 MG/5 ML SYRINGE IV ONE (14:43)
[2020-10-07] MEDS ORDERED: Glycopyrrolate 0.2 MG/ML SDV ONE (14:43)
[2020-10-07] MEDS ORDERED: Lidocaine 2% 5 ML SDV ONE (14:43)
[2020-10-07] MEDS ORDERED: fentaNYL 100 MCG/2 ML SDV ONE (14:44)
[2020-10-07] MEDS ORDERED: Lactated Ringers 1,000 ML IV SCH ×2 (15:15→17:45)
--- NOTE | 2020-10-07 17:46 | PCM.OPNOTE ---
- General Post-Op/Procedure Note Date of Surgery/Procedure: 10/07/20 Operative Procedure(s): Esophagogastroduodenoscopy with balloon dilatation of distal esophageal stricture to 54 Fr. Biopsies of the stomach stricture and midesophagus at 29 cm. Pre Op Diagnosis: Foreign body obstruction of the esophagus. History of Pang's esophagus with stricture. Post-Op Diagnosis: Moderate acute and chronic gastritis. Distal esophageal stricture. Long segment Pang's from 29 cm to 40 cm from the incisors. Anesthesia Technique: General ET Tube (ASA IIE) Primary Surgeon: Cristino Rosas Condition: Good Free Text/Narrative:: DICTATION 191379 CPT CODE [id number]
--- NOTE | 2020-10-07 18:21 | PCM.POSTAN ---
POST ANESTHESIA ASSESSMENT - MENTAL STATUS Mental Status: Alert - VITAL SIGNS Vital Signs: Last Vital Signs Temp 36.3 C 10/07/20 15:00 Pulse 98 10/07/20 17:56 Resp 14 10/07/20 17:56 BP 127/81 10/07/20 17:56 Pulse Ox 93 L 10/07/20 17:56 - RESPIRATORY Respiratory Status: Respiratory Rate WNL - CARDIOVASCULAR CV Status: Pulse Rate WNL - GASTROINTESTINAL GI Status: No Symptoms - POST OP HYDRATION Hydration Status: Adequate & Stable
--- NOTE | 2020-10-07 18:21 | PCM48HPAN ---
Post Anesthesia Note - EVALUATION WITHIN 48HRS OF ANESTHETIC Vital Signs in Normal Range: Yes Patient Participated in Evaluation: Yes Respiratory Function Stable: Yes Airway Patent: Yes Cardiovascular Function Stable: Yes Hydration Status Stable: Yes Pain Control Satisfactory: Yes Nausea and Vomiting Control Satisfactory: Yes Mental Status Recovered: Yes Vital Signs: Last Vital Signs Temp 36.3 C 10/07/20 15:00 Pulse 98 10/07/20 17:56 Resp 14 10/07/20 17:56 BP 127/81 10/07/20 17:56 Pulse Ox 93 L 10/07/20 17:56
[2020-10-07 18:22] VITALS: BP 121/78; PULSE 93
--- NOTE | 2020-10-08 07:35 | OR ---
SURGEON: Cristino Rosas M.D. DATE OF PROCEDURE: 10/07/2020 OPERATION PERFORMED: Esophagogastroduodenoscopy with dilatation of distal esophageal stricture to 54- Mosotho and biopsies of the stomach, stricture, and mid esophagus. PRIMARY SURGEON: Cristino Rosas M.D. ANESTHESIA: General endotracheal. ASA CLASSIFICATION: IIE. PREOPERATIVE DIAGNOSES: 1. Foreign body obstruction of the esophagus. 2. Esophageal stricture. 3. History of Pang esophagus. POSTOPERATIVE DIAGNOSES: 1. Foreign body obstruction of the esophagus. 2. Esophageal stricture. 3. History of Pang esophagus. DESCRIPTION OF PROCEDURE: The patient was taken to the operating room and placed on the operating table in the supine position. Time-out was called for appropriate identification of the patient and procedure. Following satisfactory attainment of general endotracheal anesthesia, the bite block was placed between the patient's teeth. The gastroscope was inserted through the bite block into the oropharynx and advanced to the distal esophagus. At the GE junction, there was a tight stricture that would not admit the gastroscope. This was then serially dilated to a 54-Mosotho using the balloon dilators. Once that was accomplished, I was able to advance the gastroscope through the stricture and stomach into the duodenum. Examination was now carried out in a retrograde fashion. The duodenum shows no acute inflammatory changes or ulcerations. The stomach did show a [id number] chronic gastritis. No ulcerations were noted. The gastroscope was retroflexed to visualize the proximal stomach. No lesions were seen proximally. The scope was then straightened and slowly withdrawn. The stricture was again identified, and I did not feel any resistance to the passage of the scope. Biopsies of the GE junction at approximately 40 cm were obtained. The gastroscope was then slowly withdrawn to 29 cm where mucosal changes were noted with normal-appearing squamous mucosa at approximately 29 cm. There was roughly a 10 cm segment of what appeared to be Pang esophagus. With the biopsies of the stricture and then separate biopsies at the squamocolumnar junction, it was felt that adequate tissue sampling had been carried out. The esophagus from 29 cm proximally showed healthy appearing squamous mucosa with no ulcerations. I did not see any evidence of a diverticulum. The vocal cords had been visualized as the endotracheal tube was placed and were noted to move symmetrically. The gastroscope was then removed with the patient having tolerated the procedure well. He did have pneumatic dilatation of the stricture to 54-Mosotho. The biopsies of the antrum, stricture, and esophagus at 29 cm were all sent for separate histologic analysis. The patient did tolerate the procedure well. Following emergence from anesthesia and extubation, he was taken to the recovery room in stable condition. CINDY / DENA /[id number]
== END 2020-10-07 18:29 | disposition home or self-care (01) ==
LOC: MW.SDS 14:28
PROVIDERS: ATTEND Surgery
DX: K29.50 Unspecified chronic gastritis without bleeding (principal); K20.90 Esophagitis, unspecified without bleeding; K22.70 Barrett's esophagus without dysplasia; K22.2 Esophageal obstruction; E78.00 Pure hypercholesterolemia, unspecified; Z87.891 Personal history of nicotine dependence; Z79.899 Other long term (current) drug therapy; Z98.890 Other specified postprocedural states
CPT/HCPCS: 43239; 43249; C1726; J0330; J2250; J2405; J2704; J3010; J3490; J7120; 88307; 88312

== ENCOUNTER 2021-03-02 03:00 | Inpatient (IN) | payer OTHER ==
[2021-03-02] MEDS ORDERED: Sodium Chloride 0.9% 10 ML Syringe FLUSH PRN (03:15)
[2021-03-02] MEDS ORDERED: Sodium Chloride 0.9% 2.5 ML Syringe FLUSH PRN (03:15)
[2021-03-02] MEDS ORDERED: Sodium Chloride 0.9% 1,000 ML IV ONE (03:15)
[2021-03-02] MEDS ORDERED: REMDESIVIR 200 MG in Sodium Chloride 0.9% 250 ML IV ONE (03:35)
[2021-03-02] MEDS ORDERED: Dexamethasone 10 MG/ML SDV IVPUSH ONE (03:35)
--- NOTE | 2021-03-02 03:42 | EDM.PDOC ---
ED HPI GENERAL MEDICAL PROBLEM - General Chief Complaint: Respiratory Problem Stated Complaint: COVID POSITIVE; POSSIBLE PNEUMONIA NOW Time Seen by Provider: 03/02/21 03:29 - History of Present Illness INITIAL COMMENTS - FREE TEXT/NARRATIVE: HISTORY AND PHYSICAL: History of present illness: This is a 61-year-old gentleman with no significant past medical history who was recently diagnosed with coronavirus on February 24 who is also received a full course of Regeneron therapy as an outpatient presents ER today secondary to increasing shortness of breath. Patient reports he has had no fevers. Patient does complain of cough and diarrhea. Patient denies any dysuria, frequency, urgency, headache, nuchal rigidity, photophobia. Patient has any abdominal pain or discomfort. Patient has any melena or bright red blood per rectum. Patient has any calf tenderness or swelling. Patient reports that he has had decreased p.o. intake but otherwise has been tolerating some p.o. solids and liquids. Review of systems: As per history of present illness and below otherwise all systems reviewed and negative. Past medical history: As per history of present illness and as reviewed below otherwise noncontributory. Surgical history: As per history of present illness and as reviewed below otherwise noncontributory. Social history: No reported history of drug abuse. Family history: As per history of present illness and as reviewed below otherwise noncontributory. Physical exam: This patient was seen and evaluated during the 2019 SARS-CoV-2 novel coronavirus pandemic period. Community viral transmission is ongoing at time of this encounter and the emergency department is operating under pandemic response procedures. Constitutional: Patient is oriented to person, place, and time. Appears well- developed and well-nourished. No distress. HEENT: Moist mucous membranes Head: Normocephalic and atraumatic Eyes: Right eye exhibits no discharge. Left eye exhibits no discharge. No scleral icterus Neck: Normal range of motion. No tracheal deviation present. Cardiovascular: Normal rate and regular rhythm. Pulmonary: Effort normal, no respiratory distress. Abdominal: No distention Musculoskeletal: Normal range of motion Neurologic: Alert and oriented to person, place and time. Skin: [place], warm and dry. Psychiatric: Normal mood and affect. Behavior is normal. Judgment and thought content normal. Nursing note and vital signs have been reviewed Diagnostics: CTA of the chest reveals no evidence of pulmonary embolism. Patient does have a significant amount of groundglass appearance in his lungs consistent with severe Covid pneumonia. CBC/CMP within normal limits. Therapeutics: Remdesivir 200 mg IV Decadron 10 mg IV NSS x1 L Assessment and plan: 61-year-old gentleman who presents ER today with significant hypoxia with a pulse ox of 81% on room air upon arrival. Patient's pulse ox currently with a 50% facemask is at 91%. Patient will need labs including a CBC, CMP, blood cultures. Patient will have a CT of his chest to rule out pulmonary embolism. Patient be given Decadron and remdesivir to initiate therapy for his coronavirus. Patient CT scan does not reveal any evidence of PE however there does appear to be significant amount of groundglass changes consistent with severe Covid pneumonia. Patient's pulse ox is 95% on 50% facemask at this time. Patient has been given remdesivir and Decadron. I have discussed the case with Dr. Phelps who agrees with the plan for admission for oxygen therapy and remdesivir. Critical Care: The high probability of sudden, clinically significant deterioration in the patient's condition required the highest level of my preparedness to intervene urgently. The services I provided to this patient were to treat and/or prevent clinically significant deterioration. Services included the following: chart data review, reviewing nursing notes and/or old charts, documentation time, media sales consultant collaboration regarding findings and treatment options, medication orders and management, direct patient care, vital sign assessments and ordering, interpreting and reviewing diagnostic studies/lab tests. Aggregate critical care time includes only time during which I was engaged inwork directly related to the patient's care, as described above, whether at the bedside or elsewhere in the Emergency Department. It did not include time spent performing other reported procedures or the services of residents, students, nurses or physician assistants. Critical Care Time: 35 minutes Definitive disposition and diagnosis as appropriate pending reevaluation and review of above. - Related Data Allergies Allergy/AdvReac Type Severity Reaction Status Date / Time No Known Allergies Allergy Verified 03/02/21 06:12 Home Meds: Home Meds Meloxicam 15 mg PO DAILY PRN 08/01/18 [History] Omeprazole 40 mg PO ACBREAKFAST 08/01/18 [History] Turmeric 400 mg PO DAILY 08/29/19 [History] Cholecalciferol (Vitamin D3) [Vitamin D3] 1,000 unit PO DAILY 10/07/20 [History] Rosuvastatin Calcium 20 mg PO DAILY 10/07/20 [History] Fluticasone Propionate 2 sprays NASBOTH DAILY PRN 03/02/21 [History] Past Medical History HEENT History: Reports: Other (See Below) Other HEENT History: wears glasses, has upper left and lower right permanent partial dentures Cardiovascular History: Reports: None Other Cardiovascular History: hx of Rheumatic fever Respiratory History: Reports: None Gastrointestinal History: Reports: GERD Other Gastrointestinal History: gx of dysphagia, Barretts Esophagus Genitourinary History: Reports: None Musculoskeletal History: Reports: Arthritis, Fracture Other Musculoskeletal History: hx of fx ankle and fingers Neurological History: Reports: None Other Neuro History: frequent sinus headaches Psychiatric History: Reports: None Endocrine/Metabolic History: Reports: None Hematologic History: Reports: None Immunologic History: Reports: None Oncologic (Cancer) History: Reports: None Dermatologic History: Reports: None - Infectious Disease History Infectious Disease History: Reports: Chicken Pox, Measles, Mumps, Other (See Below) Other Infectious Disease History: rheumatic fever - Past Surgical History Head Surgeries/Procedures: Reports: None Cardiovascular Surgical History: Reports: None Respiratory Surgical History: Reports: None GI Surgical History: Reports: EGD, Esophageal Dilatation Male Surgical History: Reports: None Endocrine Surgical History: Reports: None Neurological Surgical History: Reports: None Musculoskeletal Surgical History: Reports: None Oncologic Surgical History: Reports: None Dermatological Surgical History: Reports: None Social & Family History - Family History Family Medical History: No Pertinent Family History ED ROS GENERAL - Review of Systems Review Of Systems: See Below ED EXAM, GENERAL - Physical Exam Exam: See Below #1 Interpretation EKG Interpretation Comments: EK03/02/2021 413 a.m. As interpreted by ER physician: Rafa: Nonspecific ST-T wave abnormalities Normal axis No evidence of ST elevation OR Normal sinus rhythm heart rate of 80 Course - Vital Signs Last Recorded V/S: Last Vital Signs Temp 98.3 F 03/03/21 04:10 Pulse 66 03/03/21 04:10 Resp 16 03/03/21 04:10 BP 111/69 03/03/21 04:10 Pulse Ox 90 L 03/03/21 04:10 - Orders/Labs/Meds Orders: Active Orders 24 hr Category Date Time Status BILIRUBIN DIRECT [CHEM] DAILY Lab 03/03/21 06:00 Ordered BILIRUBIN DIRECT [CHEM] DAILY Lab 03/04/21 06:00 Ordered BILIRUBIN DIRECT [CHEM] DAILY Lab 03/05/21 06:00 Ordered Medication Orders Albuterol/Ipratropium (Albuterol/Ipratropium 4 Gm Inhalation [place]) 1 gm INH Q4H PRN PRN Reason: Dyspnea Last Admin: 03/02/21 18:27 Dose: 1 puff Documented by: ZANDRA Dexamethasone (Dexamethasone 4 Mg Tab) 6 mg PO DAILY COUNT INCLUDES THE [facility] Enoxaparin Sodium (Enoxaparin 40 Mg/0.4 Ml Syringe) 40 mg SUBCUT Q24H COUNT INCLUDES THE [facility] Last Admin: 03/02/21 10:54 Dose: 40 mg Documented by: ZANDRA Guaifenesin/Dextromethorphan (Guaifenesin/Dextromethorphan 100-10 Mg/5 Ml Soln 10 Ml Cup) 10 ml PO Q4H PRN PRN Reason: Cough Last Admin: 03/03/21 04:13 Dose: 10 ml Documented by: Admin: 03/02/21 22:41 Dose: 10 ml Documented by: Admin: 03/02/21 18:27 Dose: 10 ml Documented by: ZANDRA Remdesivir 100 mg/ Sodium (Chloride) 100 mls @ 100 mls/hr IV Q24H COUNT INCLUDES THE [facility] Stop: 03/06/21 05:59 Last Admin: 03/03/21 04:13 Dose: 100 mls/hr Documented by: ERIC Meloxicam (Meloxicam 7.5 Mg Tab) 15 mg PO Q24H PRN PRN Reason: Pain Pantoprazole Sodium (Pantoprazole 40 Mg Tab.Cr) 40 mg PO ACBREAKFAST COUNT INCLUDES THE [facility] Rosuvastatin Calcium (Rosuvastatin 10 Mg Tab) 20 mg PO BEDTIME COUNT INCLUDES THE [facility] Last Admin: 03/02/21 20:38 Dose: 20 mg Documented by: ERIC Sodium Chloride (Sodium Chloride 0.9% 10 Ml Syringe) 10 ml FLUSH ASDIRECTED PRN PRN Reason: Keep Vein Open Last Admin: 03/02/21 03:35 Dose: 10 ml Documented by: STARR Sodium Chloride (Sodium Chloride 0.9% 2.5 Ml Syringe) 2.5 ml FLUSH ASDIRECTED PRN PRN Reason: Keep Vein Open Last Admin: 03/02/21 03:35 Dose: 2.5 ml Documented by: STARR Labs: Laboratory Tests 03/02/21 03/02/21 03/02/21 Range/Units 03:33 03:33 03:33 WBC 9.39 (4.0-11.0) K/uL RBC 4.65 (4.50-5.90) M/uL Hgb 13.8 (13.0-17.0) g/dL Hct 40.9 (38.0-50.0) % MCV 88.0 (80.0-98.0) fL MCH 29.7 (27.0-32.0) pg MCHC 33.7 (31.0-37.0) g/dL RDW Std Deviation 45.6 (28.0-62.0) fl RDW Coeff of Tin 14 (11.0-15.0) % Plt Count 460 H (150-400) K/uL MPV 9.50 (7.40-12.00) fL Neut % (Auto) 81.0 H (48.0-80.0) % Lymph % (Auto) 9.3 L (16.0-40.0) % Gem % (Auto) 8.0 (0.0-15.0) % Eos % (Auto) 1.7 (0.0-7.0) % Baso % (Auto) 0.0 (0.0-1.5) % Neut # (Auto) 7.6 H (1.4-5.7) K/uL Lymph # (Auto) 0.9 (0.6-2.4) K/uL Gem # (Auto) 0.8 (0.0-0.8) K/uL Eos # (Auto) 0.2 (0.0-0.7) K/uL Baso # (Auto) 0.0 (0.0-0.1) K/uL Nucleated RBC % 0.0 /100WBC Nucleated RBCs # 0 K/uL Sodium 136 (136-148) mmol/L Potassium 3.8 (3.5-5.1) mmol/L Chloride 97 L (98-107) mmol/L Carbon Dioxide 27.7 (21.0-32.0) mmol/L BUN 13 (7.0-18.0) mg/dL Creatinine 1.0 (0.8-1.3) mg/dL Est Cr Clr Drug Dosing 90.19 mL/min Estimated GFR (MDRD) > 60.0 ml/min Glucose 146 H (74-106) mg/dL Calcium 8.7 (8.5-10.1) mg/dL Total Bilirubin 0.7 (0.2-1.0) mg/dL AST 57 H (15-37) IU/L ALT 113 H (14-63) IU/L Alkaline Phosphatase 59 (46-116) U/L Troponin I < 0.050 (0.000-0.056) ng/mL C-Reactive Protein 14.20 H (0.00-0.90) mg/dL Total Protein 7.7 (6.4-8.2) g/dL Albumin 2.8 L (3.4-5.0) g/dL Globulin 4.9 H (2.6-4.0) g/dL Albumin/Globulin Ratio 0.6 L (0.9-1.6) SARS-CoV-2 RNA (VIDAL) (NEGATIVE) 03/02/21 Range/Units 03:43 WBC (4.0-11.0) K/uL RBC (4.50-5.90) M/uL Hgb (13.0-17.0) g/dL Hct (38.0-50.0) % MCV (80.0-98.0) fL MCH (27.0-32.0) pg MCHC (31.0-37.0) g/dL RDW Std Deviation (28.0-62.0) fl RDW Coeff of Tin (11.0-15.0) % Plt Count (150-400) K/uL MPV (7.40-12.00) fL Neut % (Auto) (48.0-80.0) % Lymph % (Auto) (16.0-40.0) % Gem % (Auto) (0.0-15.0) % Eos % (Auto) (0.0-7.0) % Baso % (Auto) (0.0-1.5) % Neut # (Auto) (1.4-5.7) K/uL Lymph # (Auto) (0.6-2.4) K/uL Gem # (Auto) (0.0-0.8) K/uL Eos # (Auto) (0.0-0.7) K/uL Baso # (Auto) (0.0-0.1) K/uL Nucleated RBC % /100WBC Nucleated RBCs # K/uL Sodium (136-148) mmol/L Potassium (3.5-5.1) mmol/L Chloride (98-107) mmol/L Carbon Dioxide (21.0-32.0) mmol/L BUN (7.0-18.0) mg/dL Creatinine (0.8-1.3) mg/dL Est Cr Clr Drug Dosing mL/min Estimated GFR (MDRD) ml/min Glucose (74-106) mg/dL Calcium (8.5-10.1) mg/dL Total Bilirubin (0.2-1.0) mg/dL AST (15-37) IU/L ALT (14-63) IU/L Alkaline Phosphatase (46-116) U/L Troponin I (0.000-0.056) ng/mL C-Reactive Protein (0.00-0.90) mg/dL Total Protein (6.4-8.2) g/dL Albumin (3.4-5.0) g/dL Globulin (2.6-4.0) g/dL Albumin/Globulin Ratio (0.9-1.6) SARS-CoV-2 RNA (VIDAL) POSITIVE H (NEGATIVE) Meds: Medications Generic Name Dose Route Start Last Admin Trade Name Freq PRN Reason Stop Dose Admin Albuterol/Ipratropium 1 gm 03/02/21 11:42 03/02/21 18:27 Albuterol/Ipratropium 4 Gm Inhalation [place] INH 1 puff Q4H PRN Administration Dyspnea Dexamethasone 6 mg 03/03/21 09:00 Dexamethasone 4 Mg Tab PO DAILY LYLE Enoxaparin Sodium 40 mg 03/02/21 10:15 03/02/21 10:54 Enoxaparin 40 Mg/0.4 Ml Syringe SUBCUT 40 mg Q24H LYLE Administration Guaifenesin/Dextromethorphan 10 ml 03/02/21 18:06 03/03/21 04:13 Guaifenesin/Dextromethorphan 100-10 Mg/5 Ml Soln 10 Ml Cup PO 10 ml Q4H PRN Administration Cough Remdesivir 100 mg/ Sodium 100 mls @ 100 mls/hr 03/03/21 05:00 03/03/21 04:13 Chloride IV 03/06/21 05:59 100 mls/hr Q24H LYLE Administration Meloxicam 15 mg 03/02/21 13:28 Meloxicam 7.5 Mg Tab PO Q24H PRN Pain Pantoprazole Sodium 40 mg 03/03/21 07:30 Pantoprazole 40 Mg Tab.Cr PO ACBREAKFAST LYLE Rosuvastatin Calcium 20 mg 03/02/21 21:00 03/02/21 20:38 Rosuvastatin 10 Mg Tab PO 20 mg BEDTIME LYLE Administration Sodium Chloride 10 ml 03/02/21 03:15 03/02/21 03:35 Sodium Chloride 0.9% 10 Ml Syringe FLUSH 10 ml ASDIRECTED PRN Administration Keep Vein Open Sodium Chloride 2.5 ml 03/02/21 03:15 03/02/21 03:35 Sodium Chloride 0.9% 2.5 Ml Syringe FLUSH 2.5 ml ASDIRECTED PRN Administration Keep Vein Open Discontinued Medications Generic Name Dose Route Start Last Admin Trade Name Freq PRN Reason Stop Dose Admin Dexamethasone 10 mg 03/02/21 03:35 03/02/21 03:54 Dexamethasone 10 Mg/Ml Sdv IVPUSH 03/02/21 03:36 10 mg ONETIME ONE Administration Sodium Chloride 1,000 mls @ 999 mls/hr 03/02/21 03:15 03/02/21 03:35 Normal Saline IV 03/02/21 04:15 999 mls/hr .Bolus ONE Administration Remdesivir 200 mg/ Sodium 250 mls @ 250 mls/hr 03/02/21 03:35 03/02/21 05:07 Chloride IV 03/02/21 03:36 250 mls/hr ONETIME ONE Administration Iopamidol 100 ml 03/02/21 04:47 03/02/21 04:48 Iopamidol 755 Mg/Ml 500 Ml Multipack Bottle IVPUSH 03/02/21 04:48 100 ml ONETIME STA Administration Departure - Departure Time of Disposition: 05:27 Disposition: Admitted As Inpatient 66 Condition: Fair Clinical Impression: Pneumonia due to COVID-19 virus, Respiratory failure with hypoxia - Discharge Information - My Orders Last 24 Hours: My Active Orders 03/03/21 06:00 BILIRUBIN DIRECT [CHEM] DAILY 03/04/21 06:00 BILIRUBIN DIRECT [CHEM] DAILY 03/05/21 06:00 BILIRUBIN DIRECT [CHEM] DAILY - Assessment/Plan Last 24 Hours: My Active Orders 03/03/21 06:00 BILIRUBIN DIRECT [CHEM] DAILY 03/04/21 06:00 BILIRUBIN DIRECT [CHEM] DAILY 03/05/21 06:00 BILIRUBIN DIRECT [CHEM] DAILY
[2021-03-02 04:03] LABS: BLOOD UREA NITROGEN,BUN 13 mg/dL (7.0-18.0); CARBON DIOXIDE,CO2 27.7 mmol/L (21.0-32.0); CHLORIDE,CL 97 mmol/L (98-107); GLUCOSE RANDOM 146 mg/dL (74-106); POTASSIUM,K 3.8 mmol/L (3.5-5.1); SODIUM,NA 136 mmol/L (136-148)
[2021-03-02] MEDS ORDERED: Iopamidol 755 MG/ML 500 ML Multipack Bottle IVPUSH STA (04:47)
--- NOTE | 2021-03-02 05:15 | CT ---
INDICATION: COVID-19, shortness of breath TECHNIQUE: CT chest with i.v. contrast using pulmonary angiographic technique. Coronal and sagittal reformats were obtained. CONTRAST: 100 mL Isovue 370 COMPARISON: None FINDINGS: Cardiovascular: The pulmonary arteries are unremarkable in enhancement with no evidence of acute pulmonary embolism. The heart has an unremarkable appearance and size. No sign of aneurysm in the thoracic aorta. Mediastinum: Bilateral hilar lymph nodes are present measuring up to 1.7 cm. There is a subcarinal lymph node measuring 1.7 cm and a right paratracheal lymph node measuring 1 cm. Lung: Severe peripheral ground-glass opacities are noted bilaterally and consistent with COVID-19 infection. Pleura and pericardium: No sign of pleural effusion seen. No significant pericardial effusion is present. Chest wall and axilla: No mass or adenopathy seen. Bone: Unremarkable for age. Upper abdomen: Small sliding type gastric hiatal hernia (type IV) is present. IMPRESSIONS: 1. No CT evidence of acute pulmonary emboli seen. 2. Moderate mediastinal and hilar adenopathy is seen and likely reactive. Follow-up imaging is recommended to document resolution. 3. Severe peripheral ground-glass opacities are noted bilaterally and consistent with COVID-19 infection. Dictated by Adolfo Crabtree MD @ 03/02/2021 5:14:42 AM Please note that all CT scans at this facility use dose modulation, iterative reconstruction, and/or weight-based dosing when appropriate to reduce radiation dose to as low as reasonably achievable. Dictated by: Adolfo Crabtree MD @ 03/02/2021 05:14:46 (Electronically Signed)
--- NOTE | 2021-03-02 08:28 | PCM.HP.2 ---
H&P History of Present Illness - General Date of Service: 03/02/21 Admit Problem/Dx: Admission Diagnosis/Problem Admission Diagnosis/Problem Respiratory failure with hypoxia - History of Present Illness Initial Comments - Free Text/Narative: The patient is a 61-year-old male on day 1 of admission who has a significant past medical history of GERD, arthritis of the bilateral shoulders, Pang's esophagus, rheumatic fever, and hyperlipidemia. He was admitted to the service due to acute respiratory failure secondary to COVID-19 pneumonia. On 02/24 the patient was diagnosed with COVID-19, received Regeneron therapy on an outpatient basis on 02/26 and 03/01. He admits to a 5-day history of worsening shortness of breath, worse with exertion, and cough productive of clear sputum with occasional yellow discoloration. For the shortness of breath and cough he went to his PCP last week and received azithromycin treatment and completed the course. He was also suffering from diarrhea for the past 5 days which is nonbloody, however it has subsided but today he complains of gas. He has had no recorded fever or chills. Upon entry to the hospital the patient was hypoxic with a oxygen saturation of 81% on room air, and was put on face mask which increased his saturation to 91%. Currently he is saturating 90% on 13 L. The patient is eating and drinking without any issues. Upon interview, he denies chest pain, palpitations, abdominal pain, loss of taste or smell, and has no issues with urination. In the emergency room, the patient had labs drawn more specifically a CBC which was unremarkable except increased platelets, a CMP which showed decreased chloride, increase glucose, increased AST and ALT, and a urinalysis which showed urine ketones. He also received one dose of remdesivir 200 mg IV and one dose of Decadron 10 mg IV. He also had a CT angiogram of the chest done to rule out pulmonary embolism. No pulmonary embolism was found upon imaging however ground glass appearances of the lungs bilaterally was seen, pointing towards a diagnosis of COVID-19 pneumonia. Onset of Symptoms: Reports: Gradual Duration of Symptoms: Reports: Day(s): - Related Data Allergies/Adverse Reactions: Allergies Allergy/AdvReac Type Severity Reaction Status Date / Time No Known Allergies Allergy Verified 03/02/21 06:12 Home Medications: Home Meds Meloxicam 15 mg PO DAILY PRN 08/01/18 [History] Omeprazole 40 mg PO ACBREAKFAST 08/01/18 [History] Turmeric 400 mg PO DAILY 08/29/19 [History] Cholecalciferol (Vitamin D3) [Vitamin D3] 1,000 unit PO DAILY 10/07/20 [History] Rosuvastatin Calcium 20 mg PO DAILY 10/07/20 [History] Fluticasone Propionate 2 sprays NASBOTH DAILY PRN 03/02/21 [History] Past Medical History HEENT History: Reports: Other (See Below) Other HEENT History: wears glasses, has upper left and lower right permanent partial dentures Cardiovascular History: Reports: None Other Cardiovascular History: hx of Rheumatic fever Respiratory History: Reports: None Gastrointestinal History: Reports: GERD Other Gastrointestinal History: gx of dysphagia, Barretts Esophagus Genitourinary History: Reports: None Musculoskeletal History: Reports: Arthritis, Fracture Other Musculoskeletal History: hx of fx ankle and fingers Neurological History: Reports: None Other Neuro History: frequent sinus headaches Psychiatric History: Reports: None Endocrine/Metabolic History: Reports: None Hematologic History: Reports: None Immunologic History: Reports: None Oncologic (Cancer) History: Reports: None Dermatologic History: Reports: None - Infectious Disease History Infectious Disease History: Reports: Chicken Pox, Measles, Mumps, Other (See Below) Other Infectious Disease History: rheumatic fever - Past Surgical History Head Surgeries/Procedures: Reports: None Cardiovascular Surgical History: Reports: None Respiratory Surgical History: Reports: None GI Surgical History: Reports: EGD, Esophageal Dilatation Male Surgical History: Reports: None Endocrine Surgical History: Reports: None Neurological Surgical History: Reports: None Musculoskeletal Surgical History: Reports: None Oncologic Surgical History: Reports: None Dermatological Surgical History: Reports: None Social & Family History - Family History Family Medical History: No Pertinent Family History - Tobacco Use Tobacco Use Status *Q: Former Tobacco User Used Tobacco, but Quit: Yes Month/Year Tobacco Last Used: 1990 - Caffeine Use Caffeine Use: Reports: Coffee, Tea - Alcohol Use Date of Last Drink: 08/06/89 - Recreational Drug Use Recreational Drug Use: No H&P Review of Systems - Review of Systems: Review Of Systems: See Below General: Reports: Fatigue. Denies: Fever, Chills HEENT: Denies: Sore Throat Pulmonary: Reports: Shortness of Breath, Wheezing, Cough Cardiovascular: Reports: Dyspnea on Exertion. Denies: Chest Pain, Palpitations Gastrointestinal: Reports: Diarrhea. Denies: Abdominal Pain, Constipation Genitourinary: Denies: Dysuria Musculoskeletal: Reports: Shoulder Pain Exam - Exam Exam: See Below - Vital Signs Vital Signs: Last Vital Signs Temp 96.5 F L 03/02/21 08:00 Pulse 84 03/02/21 08:00 Resp 20 03/02/21 08:00 BP 132/74 03/02/21 08:00 Pulse Ox 97 03/02/21 08:00 Weight: 211 lb - Exam General: Alert, Oriented, Cooperative HEENT: Mucosa Moist & [place] Neck: Trachea Midline Lungs: Wheezing Cardiovascular: Regular Rate, Regular Rhythm GI/Abdominal Exam: Normal Bowel Sounds, Soft, Non-Tender Extremities: No: Pedal Edema - Patient Data Lab Results Last 24 hrs: Laboratory Results - last 24 hr 03/02/21 03/02/21 03/02/21 Range/Units 03:33 03:33 03:43 WBC 9.39 (4.0-11.0) K/uL RBC 4.65 (4.50-5.90) M/uL Hgb 13.8 (13.0-17.0) g/dL Hct 40.9 (38.0-50.0) % MCV 88.0 (80.0-98.0) fL MCH 29.7 (27.0-32.0) pg MCHC 33.7 (31.0-37.0) g/dL RDW Std Deviation 45.6 (28.0-62.0) fl RDW Coeff of Tin 14 (11.0-15.0) % Plt Count 460 H (150-400) K/uL MPV 9.50 (7.40-12.00) fL Neut % (Auto) 81.0 H (48.0-80.0) % Lymph % (Auto) 9.3 L (16.0-40.0) % [place] % (Auto) 8.0 (0.0-15.0) % Eos % (Auto) 1.7 (0.0-7.0) % Baso % (Auto) 0.0 (0.0-1.5) % Neut # (Auto) 7.6 H (1.4-5.7) K/uL Lymph # (Auto) 0.9 (0.6-2.4) K/uL [place] # (Auto) 0.8 (0.0-0.8) K/uL Eos # (Auto) 0.2 (0.0-0.7) K/uL Baso # (Auto) 0.0 (0.0-0.1) K/uL Nucleated RBC % 0.0 /100WBC Nucleated RBCs # 0 K/uL Sodium 136 (136-148) mmol/L Potassium 3.8 (3.5-5.1) mmol/L Chloride 97 L (98-107) mmol/L Carbon Dioxide 27.7 (21.0-32.0) mmol/L BUN 13 (7.0-18.0) mg/dL Creatinine 1.0 (0.8-1.3) mg/dL Est Cr Clr Drug Dosing 90.19 mL/min Estimated GFR (MDRD) > 60.0 ml/min Glucose 146 H (74-106) mg/dL Calcium 8.7 (8.5-10.1) mg/dL Total Bilirubin 0.7 (0.2-1.0) mg/dL AST 57 H (15-37) IU/L ALT 113 H (14-63) IU/L Alkaline Phosphatase 59 (46-116) U/L Troponin I < 0.050 (0.000-0.056) ng/mL Total Protein 7.7 (6.4-8.2) g/dL Albumin 2.8 L (3.4-5.0) g/dL Globulin 4.9 H (2.6-4.0) g/dL Albumin/Globulin Ratio 0.6 L (0.9-1.6) Urine Color Urine Appearance Urine pH (5.0-8.0) Ur Specific [place] (1.001-1.035) Urine Protein (NEGATIVE) mg/dL Urine Glucose (UA) (NEGATIVE) mg/dL Urine Ketones (NEGATIVE) mg/dL Urine Occult Blood (NEGATIVE) Urine Nitrite (NEGATIVE) Urine Bilirubin (NEGATIVE) Urine Urobilinogen (<2.0) EU/dL Ur Leukocyte Esterase (NEGATIVE) SARS-CoV-2 RNA (VIDAL) POSITIVE H (NEGATIVE) 03/02/21 Range/Units 07:35 WBC (4.0-11.0) K/uL RBC (4.50-5.90) M/uL Hgb (13.0-17.0) g/dL Hct (38.0-50.0) % MCV (80.0-98.0) fL MCH (27.0-32.0) pg MCHC (31.0-37.0) g/dL RDW Std Deviation (28.0-62.0) fl RDW Coeff of Tin (11.0-15.0) % Plt Count (150-400) K/uL MPV (7.40-12.00) fL Neut % (Auto) (48.0-80.0) % Lymph % (Auto) (16.0-40.0) % [place] % (Auto) (0.0-15.0) % Eos % (Auto) (0.0-7.0) % Baso % (Auto) (0.0-1.5) % Neut # (Auto) (1.4-5.7) K/uL Lymph # (Auto) (0.6-2.4) K/uL [place] # (Auto) (0.0-0.8) K/uL Eos # (Auto) (0.0-0.7) K/uL Baso # (Auto) (0.0-0.1) K/uL Nucleated RBC % /100WBC Nucleated RBCs # K/uL Sodium (136-148) mmol/L Potassium (3.5-5.1) mmol/L Chloride (98-107) mmol/L Carbon Dioxide (21.0-32.0) mmol/L BUN (7.0-18.0) mg/dL Creatinine (0.8-1.3) mg/dL Est Cr Clr Drug Dosing mL/min Estimated GFR (MDRD) ml/min Glucose (74-106) mg/dL Calcium (8.5-10.1) mg/dL Total Bilirubin (0.2-1.0) mg/dL AST (15-37) IU/L ALT (14-63) IU/L Alkaline Phosphatase (46-116) U/L Troponin I (0.000-0.056) ng/mL Total Protein (6.4-8.2) g/dL Albumin (3.4-5.0) g/dL Globulin (2.6-4.0) g/dL Albumin/Globulin Ratio (0.9-1.6) Urine Color YELLOW Urine Appearance CLEAR Urine pH 6.5 (5.0-8.0) Ur Specific [place] <= 1.005 (1.001-1.035) Urine Protein NEGATIVE (NEGATIVE) mg/dL Urine Glucose (UA) NEGATIVE (NEGATIVE) mg/dL Urine Ketones TRACE H (NEGATIVE) mg/dL Urine Occult Blood NEGATIVE (NEGATIVE) Urine Nitrite NEGATIVE (NEGATIVE) Urine Bilirubin NEGATIVE (NEGATIVE) Urine Urobilinogen 0.2 (<2.0) EU/dL Ur Leukocyte Esterase NEGATIVE (NEGATIVE) SARS-CoV-2 RNA (VIDAL) (NEGATIVE) Result Diagrams: 03/02/21 03:33 03/02/21 03:33 Sepsis Event Note - Evaluation Sepsis Screening Result: No Definite Risk - Focused Exam Vital Signs: Vital Signs Temp Pulse Resp BP Pulse Ox 03/02/21 08:00 96.5 F L 84 20 132/74 97 03/02/21 06:13 97.9 F 86 17 136/73 93 L 03/02/21 06:03 87 18 142/76 H 99 03/02/21 05:19 88 18 149/86 H 98 03/02/21 04:20 80 18 148/78 H 97 03/02/21 03:29 98.7 F 84 18 127/78 86 L - Problem List (1) Arthritis SNOMED Code(s): 4811692 ICD Code: M19.90 - UNSPECIFIED OSTEOARTHRITIS, UNSPECIFIED SITE Status: Acute Current Visit: Yes (2) Pneumonia due to COVID-19 virus SNOMED Code(s): 034048456980023678 ICD Code: U07.1 - COVID-19; J12.82 - PNEUMONIA DUE TO CORONAVIRUS DISEASE 2019 Status: Acute Current Visit: Yes (3) Respiratory failure with hypoxia SNOMED Code(s): 94701419514676959 ICD Code: J96.91 - RESPIRATORY FAILURE, UNSPECIFIED WITH HYPOXIA Status: Acute Current Visit: Yes (4) Hyperlipidemia SNOMED Code(s): 76172007 ICD Code: E78.5 - HYPERLIPIDEMIA, UNSPECIFIED Status: Acute Current Visit: Yes Problem List Initiated/Reviewed/Updated: Yes Orders Last 24hrs: Active Orders 24 hr Category Date Time Status Patient Status [ADT] Routine ADT 03/02/21 05:25 Active Telemetry Monitoring [Cardiac Monitoring] [RC] . Care 03/02/21 05:46 Active DIRECTED Regular Diet [DIET] Diet 03/02/21 Breakfast Active BILIRUBIN DIRECT [CHEM] DAILY Lab 03/03/21 06:00 Ordered BILIRUBIN DIRECT [CHEM] DAILY Lab 03/04/21 06:00 Ordered BILIRUBIN DIRECT [CHEM] DAILY Lab 03/05/21 06:00 Ordered COMPREHENSIVE METABOLIC PN,CMP [CHEM] DAILY Lab 03/03/21 06:00 Ordered COMPREHENSIVE METABOLIC PN,CMP [CHEM] DAILY Lab 03/04/21 06:00 Ordered COMPREHENSIVE METABOLIC PN,CMP [CHEM] DAILY Lab 03/05/21 06:00 Ordered CRP, HIGH SENSITIVITY [REF] Stat Lab 03/02/21 05:24 Ordered CULTURE BLOOD [BC] Stat Lab 03/02/21 03:33 Received CULTURE BLOOD [BC] Stat Lab 03/02/21 04:00 Received Sodium Chloride 0.9% [Saline Flush] Med 03/02/21 03:15 Active 10 ml FLUSH ASDIRECTED PRN Sodium Chloride 0.9% [Saline Flush] Med 03/02/21 03:15 Active 2.5 ml FLUSH ASDIRECTED PRN Blood Culture x2 Reflex Set [OM.PC] Stat Oth 03/02/21 03:15 Ordered Saline Lock Insert [OM.PC] Stat Oth 03/02/21 03:15 Ordered Medication Orders Sodium Chloride (Sodium Chloride 0.9% 10 Ml Syringe) 10 ml FLUSH ASDIRECTED PRN PRN Reason: Keep Vein Open Last Admin: 03/02/21 03:35 Dose: 10 ml Documented by: STARR Sodium Chloride (Sodium Chloride 0.9% 2.5 Ml Syringe) 2.5 ml FLUSH ASDIRECTED PRN PRN Reason: Keep Vein Open Last Admin: 03/02/21 03:35 Dose: 2.5 ml Documented by: STARR Assessment/Plan Comment:: Admit to the patient to the medical floor, full code, vitals per unit routine, activity up ad aramis, DVT prophylaxis with Lovenox 40 mg SQ once a day, GI prophylaxis with pantoprazole 40 mg per oral route once a day 1. Acute respiratory failure secondary to COVID-19 pneumonia -The patient received 1 dose of remdesivir 200 mg IV while in the emergency room, we will continue with remdesivir treatment 100 mg IV, 4 doses to give -The patient received Decadron 10 mg IV while in the emergency room, will continue with dexamethasone 6 mg per oral route once a day -The patient has been put on Combivent every 4 hours as needed for shortness of breath -We will order daily CBC/CMP to assess for white blood cell status and any electrolyte abnormalities -We have discussed Baricitinib with the patient, he is currently reading through information that was provided for him and will come up with a decision on whether he wants to use this novel treatment -Continue to supply oxygen as needed -Incentive spirometry in prone position 2. Arthritis of the bilateral shoulders -We will continue the patient's home dose of meloxicam 15 mg per oral route once a day 3. Hyperlipidemia -We will continue the patient's home dosage of rosuvastatin 20 mg per oral route once a day 4. GERD -The patient takes omeprazole at home, however we have started him on GI prophylaxis with pantoprazole 40 mg per oral once a day.
[2021-03-02] MEDS: Enoxaparin 40 MG/0.4 ML Syringe SUBCUT SCH (10:54)
[2021-03-02] MEDS ORDERED: Meloxicam 7.5 MG Tab PO PRN (13:28)
[2021-03-02] MEDS: Albuterol/Ipratropium 4 GM Inhalation Spray INH PRN (18:27)
[2021-03-02] MEDS: guaiFENesin/Dextromethorphan 100-10 MG/5 ML Soln 10 ML Cup PO PRN ×2 (18:27→22:41)
[2021-03-02] MEDS: Rosuvastatin 10 MG Tab PO SCH (20:38)
[2021-03-03] MEDS: REMDESIVIR 100 MG in Sodium Chloride 0.9% 100 ML IV SCH (04:13)
[2021-03-03] MEDS: guaiFENesin/Dextromethorphan 100-10 MG/5 ML Soln 10 ML Cup PO PRN ×2 (04:13→20:22)
[2021-03-03 08:10] LABS: BLOOD UREA NITROGEN,BUN 14 mg/dL (7.0-18.0); CARBON DIOXIDE,CO2 27.7 mmol/L (21.0-32.0); CHLORIDE,CL 104 mmol/L (98-107); GLUCOSE RANDOM 139 mg/dL (74-106); POTASSIUM,K 4.4 mmol/L (3.5-5.1); SODIUM,NA 140 mmol/L (136-148)
[2021-03-03] MEDS: Pantoprazole 40 MG Tab.CR PO SCH (08:13)
[2021-03-03] MEDS: Dexamethasone 4 MG Tab PO SCH (08:14)
[2021-03-03] MEDS: Enoxaparin 40 MG/0.4 ML Syringe SUBCUT SCH (10:04)
[2021-03-03] MEDS: VANCOmycin 1.5 GM/300 ML 1.5 GM in Premix Bag 1 BAG IV SCH ×2 (12:09→18:42)
[2021-03-03] MEDS: Albuterol/Ipratropium 4 GM Inhalation Spray INH PRN (12:21)
--- NOTE | 2021-03-03 12:44 | PCM.PN ---
- General Info Date of Service: 03/03/21 Subjective Update: The patient is a 61-year-old male, significant past medical history of GERD, arthritis of both shoulders, Pang's esophagus, rheumatic fever, and hyperlipidemia, who was admitted for acute respiratory failure secondary to COVID-19 pneumonia. Upon interview today the patient admits that he feels more congested than normal and that he still has dyspnea upon movements around the room and to the restroom. He is also complaining of cough which is productive of clear sputum with occasional yellow discoloration. He has no issues with urination and/or defecation. He admits that he did sleep good last night. He is eating and drinking and has a healthy appetite. His blood cultures returned which showed gram-positive cocci in clusters, and as a result additional blood cultures were ordered and the patient will be started on the vancomycin anti biotic therapy. As a result of these findings, his baricitinib will have to be discontinued. He is currently saturating 90% on 10 L of oxygen. He has no other concerns at this time. - Review of Systems General: Denies: Fever, Weakness, Fatigue, Malaise, Chills HEENT: Denies: Sore Throat Pulmonary: Reports: Shortness of Breath, Cough, Sputum. Denies: Pleuritic Chest Pain Cardiovascular: Reports: Dyspnea on Exertion. Denies: Chest Pain, Palpitations Gastrointestinal: Denies: Abdominal Pain, Constipation, Diarrhea, Nausea, Vomiting Genitourinary: Denies: Dysuria - Patient Data Vitals - Most Recent: Last Vital Signs Temp 98.1 F 03/03/21 08:20 Pulse 61 03/03/21 08:20 Resp 18 03/03/21 08:20 BP 113/63 03/03/21 08:20 Pulse Ox 90 L 03/03/21 08:20 Weight - Most Recent: 211 lb I&O - Last 24 Hours: Intake & Output 03/02/21 03/03/21 03/03/21 22:59 06:59 14:59 Intake Total 800 1000 Output Total 500 750 Balance 300 250 Lab Results Last 24 Hours: Laboratory Results - last 24 hr 03/03/21 03/03/21 03/03/21 Range/Units 05:20 05:40 05:40 WBC 11.63 H (4.0-11.0) K/uL RBC 4.02 L (4.50-5.90) M/uL Hgb 12.1 L (13.0-17.0) g/dL Hct 36.1 L (38.0-50.0) % MCV 89.8 (80.0-98.0) fL MCH 30.1 (27.0-32.0) pg MCHC 33.5 (31.0-37.0) g/dL RDW Std Deviation 46.3 (28.0-62.0) fl RDW Coeff of Tin 14 (11.0-15.0) % Plt Count 549 H (150-400) K/uL MPV 10.00 (7.40-12.00) fL Neut % (Auto) 83.8 H (48.0-80.0) % Lymph % (Auto) 8.8 L (16.0-40.0) % [place] % (Auto) 7.1 (0.0-15.0) % Eos % (Auto) 0.2 (0.0-7.0) % Baso % (Auto) 0.1 (0.0-1.5) % Neut # (Auto) 9.8 H (1.4-5.7) K/uL Lymph # (Auto) 1.0 (0.6-2.4) K/uL [place] # (Auto) 0.8 (0.0-0.8) K/uL Eos # (Auto) 0.0 (0.0-0.7) K/uL Baso # (Auto) 0.0 (0.0-0.1) K/uL Nucleated RBC % 0.0 /100WBC Nucleated RBCs # 0 K/uL Sodium 140 (136-148) mmol/L Potassium 4.4 (3.5-5.1) mmol/L Chloride 104 (98-107) mmol/L Carbon Dioxide 27.7 (21.0-32.0) mmol/L BUN 14 (7.0-18.0) mg/dL Creatinine 0.9 (0.8-1.3) mg/dL Est Cr Clr Drug Dosing 100.21 mL/min Estimated GFR (MDRD) > 60.0 ml/min Glucose 139 H (74-106) mg/dL Calcium 8.1 L (8.5-10.1) mg/dL Total Bilirubin 0.3 (0.2-1.0) mg/dL Direct Bilirubin 0.10 (0.0-0.5) mg/dL AST 47 H (15-37) IU/L ALT 99 H (14-63) IU/L Alkaline Phosphatase 51 (46-116) U/L Total Protein 6.4 (6.4-8.2) g/dL Albumin 2.2 L (3.4-5.0) g/dL Globulin 4.2 H (2.6-4.0) g/dL Albumin/Globulin Ratio 0.5 L (0.9-1.6) Artem Results Last 24 Hours: Microbiology 03/02/21 04:00 Aerobic Blood Culture - Final Blood - Venous - Lab Draw Anaerobic Blood Culture - Preliminary NO GROWTH AFTER 1 DAY 03/02/21 03:33 Aerobic Blood Culture - Preliminary Blood - Venous NO GROWTH AFTER 1 DAY Anaerobic Blood Culture - Preliminary NO GROWTH AFTER 1 DAY Med Orders - Current: Current Medications Albuterol/Ipratropium (Albuterol/Ipratropium 4 Gm Inhalation [place]) 1 gm INH Q4H PRN PRN Reason: Dyspnea Last Admin: 03/03/21 12:21 Dose: 1 puff Documented by: Dexamethasone (Dexamethasone 4 Mg Tab) 6 mg PO DAILY [facility] Last Admin: 03/03/21 08:14 Dose: 6 mg Documented by: Enoxaparin Sodium (Enoxaparin 40 Mg/0.4 Ml Syringe) 40 mg SUBCUT Q24H [facility]YLE Last Admin: 03/03/21 10:04 Dose: 40 mg Documented by: Guaifenesin/Dextromethorphan (Guaifenesin/Dextromethorphan 100-10 Mg/5 Ml Soln 10 Ml Cup) 10 ml PO Q4H PRN PRN Reason: Cough Last Admin: 03/03/21 04:13 Dose: 10 ml Documented by: Remdesivir 100 mg/ Sodium (Chloride) 100 mls @ 100 mls/hr IV Q24H [facility] Stop: 03/06/21 05:59 Last Admin: 03/03/21 04:13 Dose: 100 mls/hr Documented by: Vancomycin HCl 1.5 gm/ Premix 300 mls @ 200 mls/hr IV Q8H [facility] Last Admin: 03/03/21 12:09 Dose: 200 mls/hr Documented by: Meloxicam (Meloxicam 7.5 Mg Tab) 15 mg PO Q24H PRN PRN Reason: Pain Last Admin: 03/03/21 08:38 Dose: 15 mg Documented by: Pantoprazole Sodium (Pantoprazole 40 Mg Tab.Cr) 40 mg PO ACBREAKFAST [facility] Last Admin: 03/03/21 08:13 Dose: 40 mg Documented by: Rosuvastatin Calcium (Rosuvastatin 10 Mg Tab) 20 mg PO BEDTIME [facility] Last Admin: 03/02/21 20:38 Dose: 20 mg Documented by: Sodium Chloride (Sodium Chloride 0.9% 10 Ml Syringe) 10 ml FLUSH ASDIRECTED PRN PRN Reason: Keep Vein Open Last Admin: 03/02/21 03:35 Dose: 10 ml Documented by: Sodium Chloride (Sodium Chloride 0.9% 2.5 Ml Syringe) 2.5 ml FLUSH ASDIRECTED PRN PRN Reason: Keep Vein Open Last Admin: 03/02/21 03:35 Dose: 2.5 ml Documented by: Vancomycin HCl (Pharmacy To Dose - Vancomycin) 1 dose .XX ASDIRECTED LYLE Discontinued Medications Dexamethasone (Dexamethasone 10 Mg/Ml Sdv) 10 mg IVPUSH ONETIME ONE Stop: 03/02/21 03:36 Last Admin: 03/02/21 03:54 Dose: 10 mg Documented by: Sodium Chloride (Normal Saline) 1,000 mls @ 999 mls/hr IV .Bolus ONE Stop: 03/02/21 04:15 Last Admin: 03/02/21 03:35 Dose: 999 mls/hr Documented by: Remdesivir 200 mg/ Sodium (Chloride) 250 mls @ 250 mls/hr IV ONETIME ONE Stop: 03/02/21 03:36 Last Admin: 03/02/21 05:07 Dose: 250 mls/hr Documented by: Iopamidol (Iopamidol 755 Mg/Ml 500 Ml Multipack Bottle) 100 ml IVPUSH ONETIME STA Stop: 03/02/21 04:48 Last Admin: 03/02/21 04:48 Dose: 100 ml Documented by: - Exam General: Alert, Oriented, Cooperative HEENT: Mucous Membr. Moist/[place] Neck: Trachea Midline Lungs: Wheezing Cardiovascular: Regular Rate, Regular Rhythm, No Murmurs GI/Abdominal Exam: Normal Bowel Sounds, Soft, Non-Tender, No Organomegaly Extremities: Other (SCDs in place bilaterally) - Patient Data Lab Results Last 24 hrs: Laboratory Results - last 24 hr 03/03/21 03/03/21 03/03/21 Range/Units 05:20 05:40 05:40 WBC 11.63 H (4.0-11.0) K/uL RBC 4.02 L (4.50-5.90) M/uL Hgb 12.1 L (13.0-17.0) g/dL Hct 36.1 L (38.0-50.0) % MCV 89.8 (80.0-98.0) fL MCH 30.1 (27.0-32.0) pg MCHC 33.5 (31.0-37.0) g/dL RDW Std Deviation 46.3 (28.0-62.0) fl RDW Coeff of Tin 14 (11.0-15.0) % Plt Count 549 H (150-400) K/uL MPV 10.00 (7.40-12.00) fL Neut % (Auto) 83.8 H (48.0-80.0) % Lymph % (Auto) 8.8 L (16.0-40.0) % [place] % (Auto) 7.1 (0.0-15.0) % Eos % (Auto) 0.2 (0.0-7.0) % Baso % (Auto) 0.1 (0.0-1.5) % Neut # (Auto) 9.8 H (1.4-5.7) K/uL Lymph # (Auto) 1.0 (0.6-2.4) K/uL [place] # (Auto) 0.8 (0.0-0.8) K/uL Eos # (Auto) 0.0 (0.0-0.7) K/uL Baso # (Auto) 0.0 (0.0-0.1) K/uL Nucleated RBC % 0.0 /100WBC Nucleated RBCs # 0 K/uL Sodium 140 (136-148) mmol/L Potassium 4.4 (3.5-5.1) mmol/L Chloride 104 (98-107) mmol/L Carbon Dioxide 27.7 (21.0-32.0) mmol/L BUN 14 (7.0-18.0) mg/dL Creatinine 0.9 (0.8-1.3) mg/dL Est Cr Clr Drug Dosing 100.21 mL/min Estimated GFR (MDRD) > 60.0 ml/min Glucose 139 H (74-106) mg/dL Calcium 8.1 L (8.5-10.1) mg/dL Total Bilirubin 0.3 (0.2-1.0) mg/dL Direct Bilirubin 0.10 (0.0-0.5) mg/dL AST 47 H (15-37) IU/L ALT 99 H (14-63) IU/L Alkaline Phosphatase 51 (46-116) U/L Total Protein 6.4 (6.4-8.2) g/dL Albumin 2.2 L (3.4-5.0) g/dL Globulin 4.2 H (2.6-4.0) g/dL Albumin/Globulin Ratio 0.5 L (0.9-1.6) Result Diagrams: 03/03/21 05:40 03/03/21 05:40 Artem Results Last 24 hrs: Microbiology 03/02/21 04:00 Aerobic Blood Culture - Final Blood - Venous - Lab Draw Anaerobic Blood Culture - Preliminary NO GROWTH AFTER 1 DAY 03/02/21 03:33 Aerobic Blood Culture - Preliminary Blood - Venous NO GROWTH AFTER 1 DAY Anaerobic Blood Culture - Preliminary NO GROWTH AFTER 1 DAY Sepsis Event Note - Evaluation Sepsis Screening Result: No Definite Risk - Focused Exam Vital Signs: Vital Signs Temp Pulse Resp BP Pulse Ox 03/03/21 08:20 98.1 F 61 18 113/63 90 L 03/03/21 04:10 98.3 F 66 16 111/69 90 L 03/03/21 01:00 98 F 20 92 L - Problem List & Annotations (1) Arthritis SNOMED Code(s): 5527842 Code(s): M19.90 - UNSPECIFIED OSTEOARTHRITIS, UNSPECIFIED SITE Status: Acute Current Visit: Yes (2) Pneumonia due to COVID-19 virus SNOMED Code(s): 439630003959339848 Code(s): U07.1 - COVID-19; J12.82 - PNEUMONIA DUE TO CORONAVIRUS DISEASE 2019 Status: Acute Current Visit: Yes (3) Respiratory failure with hypoxia SNOMED Code(s): 62281609952949544 Code(s): J96.91 - RESPIRATORY FAILURE, UNSPECIFIED WITH HYPOXIA Status: Acute Current Visit: Yes (4) Hyperlipidemia SNOMED Code(s): 34008829 Code(s): E78.5 - HYPERLIPIDEMIA, UNSPECIFIED Status: Acute Current Visit: Yes - Problem List Review Problem List Initiated/Reviewed/Updated: Yes - My Orders Last 24 Hours: My Active Orders 03/02/21 11:42 Albuterol/Ipratropium [Combivent Respimat] 1 gm INH Q4H PRN 03/02/21 11:43 RT Post Treatment Assessment [RC] Click to Edit RT Pre-Treatment Assessment [RC] Click to Edit 03/02/21 13:28 Meloxicam [Mobic] 15 mg PO Q24H PRN 03/02/21 18:06 Dextromethorphan/guaiFENesin [Robitussin DM] 10 ml PO Q4H PRN 03/02/21 21:00 Rosuvastatin [Crestor] 20 mg PO BEDTIME 03/03/21 05:00 Remdesivir 100 mg Sodium Chloride 0.9% [Normal Saline] 100 ml IV Q24H 03/03/21 09:00 dexAMETHasone 6 mg PO DAILY 03/03/21 10:42 Blood Culture x2 Reflex Set [OM.PC] Stat 03/03/21 10:45 Pharmacy to Dose - Vancomycin 1 dose .XX ASDIRECTED 03/03/21 11:00 VANCOmycin 1.5 GM/300 ML 1.5 gm Premix Bag 1 bag IV Q8H 03/03/21 11:20 CULTURE BLOOD [BC] Stat 03/03/21 11:30 CULTURE BLOOD [BC] Stat 03/04/21 05:11 CBC WITH AUTO DIFF [HEME] AM CMP [COMPREHENSIVE METABOLIC PN,CMP] [CHEM] AM 03/05/21 05:11 CBC WITH AUTO DIFF [HEME] AM CMP [COMPREHENSIVE METABOLIC PN,CMP] [CHEM] AM 03/06/21 05:11 CBC WITH AUTO DIFF [HEME] AM CMP [COMPREHENSIVE METABOLIC PN,CMP] [CHEM] AM 03/07/21 05:11 CBC WITH AUTO DIFF [HEME] AM CMP [COMPREHENSIVE METABOLIC PN,CMP] [CHEM] AM - Plan Plan:: 1. Acute respiratory failure secondary to COVID-19 pneumonia -we will continue with remdesivir treatment 100 mg IV -will continue with dexamethasone 6 mg per oral route once a day -patient has been put on Combivent every 4 hours as needed for shortness of breath -daily CBC/CMP to assess for white blood cell status and any electrolyte abnormalities -we have discontinued baricitinib because the patient's blood cultures returned with gram-positive cocci in clusters, he will have additional blood cultures done and vancomycin antibiotic therapy will be initiated -continue to supply oxygen as needed -incentive spirometry in prone position 2. Arthritis of the bilateral shoulders -continue the patient's home dose of meloxicam 15 mg per oral route once a day 3. Hyperlipidemia -continue the patient's home dosage of rosuvastatin 20 mg per oral route once a day 4. GERD -continue pantoprazole 40 mg per oral once a day.
[2021-03-03] MEDS: Rosuvastatin 10 MG Tab PO SCH (20:22)
[2021-03-04] MEDS: guaiFENesin/Dextromethorphan 100-10 MG/5 ML Soln 10 ML Cup PO PRN ×2 (01:48→09:31)
[2021-03-04] MEDS: VANCOmycin 1.5 GM/300 ML 1.5 GM in Premix Bag 1 BAG IV SCH ×2 (03:59→10:15)
[2021-03-04] MEDS: REMDESIVIR 100 MG in Sodium Chloride 0.9% 100 ML IV SCH (04:06)
[2021-03-04] MEDS: Pantoprazole 40 MG Tab.CR PO SCH (06:37)
[2021-03-04 07:54] LABS: BLOOD UREA NITROGEN,BUN 17 mg/dL (7.0-18.0); CARBON DIOXIDE,CO2 26.9 mmol/L (21.0-32.0); CHLORIDE,CL 106 mmol/L (98-107); GLUCOSE RANDOM 128 mg/dL (74-106); POTASSIUM,K 4.8 mmol/L (3.5-5.1); SODIUM,NA 141 mmol/L (136-148)
--- NOTE | 2021-03-04 09:04 | PCM.PN ---
- General Info Date of Service: 03/04/21 - Review of Systems Systems Review Comment:: reports shortness of breath and cough, but no new complaints. - Patient Data Vitals - Most Recent: Last Vital Signs Temp 36.5 C 03/04/21 04:00 Pulse 54 L 03/04/21 04:00 Resp 16 03/04/21 04:00 BP 109/64 03/04/21 04:00 Pulse Ox 97 03/04/21 04:00 Weight - Most Recent: 95.708 kg I&O - Last 24 Hours: Intake & Output 03/03/21 03/04/21 03/04/21 22:59 06:59 14:59 Intake Total 1080 1775 Output Total 1025 Balance 1080 750 Lab Results Last 24 Hours: Laboratory Results - last 24 hr 03/04/21 03/04/21 03/04/21 Range/Units 06:35 06:35 06:35 WBC 13.80 H (4.0-11.0) K/uL RBC 4.11 L (4.50-5.90) M/uL Hgb 12.1 L (13.0-17.0) g/dL Hct 37.1 L (38.0-50.0) % MCV 90.3 (80.0-98.0) fL MCH 29.4 (27.0-32.0) pg MCHC 32.6 (31.0-37.0) g/dL RDW Std Deviation 46.5 (28.0-62.0) fl RDW Coeff of Tin 14 (11.0-15.0) % Plt Count 631 H (150-400) K/uL MPV 9.40 (7.40-12.00) fL Neut % (Auto) 84.6 H (48.0-80.0) % Lymph % (Auto) 7.1 L (16.0-40.0) % [place] % (Auto) 8.0 (0.0-15.0) % Eos % (Auto) 0.3 (0.0-7.0) % Baso % (Auto) 0.0 (0.0-1.5) % Neut # (Auto) 11.7 H (1.4-5.7) K/uL Lymph # (Auto) 1.0 (0.6-2.4) K/uL [place] # (Auto) 1.1 H (0.0-0.8) K/uL Eos # (Auto) 0.0 (0.0-0.7) K/uL Baso # (Auto) 0.0 (0.0-0.1) K/uL Nucleated RBC % 0.0 /100WBC Nucleated RBCs # 0 K/uL Sodium 141 (136-148) mmol/L Potassium 4.8 (3.5-5.1) mmol/L Chloride 106 (98-107) mmol/L Carbon Dioxide 26.9 (21.0-32.0) mmol/L BUN 17 (7.0-18.0) mg/dL Creatinine 0.8 (0.8-1.3) mg/dL Est Cr Clr Drug Dosing 112.74 mL/min Estimated GFR (MDRD) > 60.0 ml/min Glucose 128 H (74-106) mg/dL Calcium 7.9 L (8.5-10.1) mg/dL Total Bilirubin 0.4 (0.2-1.0) mg/dL Direct Bilirubin 0.10 (0.0-0.5) mg/dL AST 32 (15-37) IU/L ALT 93 H (14-63) IU/L Alkaline Phosphatase 47 (46-116) U/L Total Protein 5.6 L (6.4-8.2) g/dL Albumin 2.3 L (3.4-5.0) g/dL Globulin 3.3 (2.6-4.0) g/dL Albumin/Globulin Ratio 0.7 L (0.9-1.6) Artem Results Last 24 Hours: Microbiology 03/02/21 04:00 Bacteria Detection (PCR) - Final Blood 03/02/21 04:00 Aerobic Blood Culture - Final Blood - Venous - Lab Draw Anaerobic Blood Culture - Preliminary NO GROWTH AFTER 2 DAYS 03/02/21 03:33 Aerobic Blood Culture - Preliminary Blood - Venous NO GROWTH AFTER 2 DAYS Anaerobic Blood Culture - Preliminary NO GROWTH AFTER 2 DAYS Med Orders - Current: Current Medications Albuterol/Ipratropium (Albuterol/Ipratropium 4 Gm Inhalation [place]) 1 gm INH Q4H PRN PRN Reason: Dyspnea Last Admin: 03/03/21 12:21 Dose: 1 puff Documented by: Dexamethasone (Dexamethasone 4 Mg Tab) 6 mg PO DAILY [facility] Last Admin: 03/03/21 08:14 Dose: 6 mg Documented by: Enoxaparin Sodium (Enoxaparin 40 Mg/0.4 Ml Syringe) 40 mg SUBCUT Q24H [facility] Last Admin: 03/03/21 10:04 Dose: 40 mg Documented by: Guaifenesin/Dextromethorphan (Guaifenesin/Dextromethorphan 100-10 Mg/5 Ml Soln 10 Ml Cup) 10 ml PO Q4H PRN PRN Reason: Cough Last Admin: 03/04/21 01:48 Dose: 10 ml Documented by: Remdesivir 100 mg/ Sodium (Chloride) 100 mls @ 100 mls/hr IV Q24H [facility] Stop: 03/06/21 05:59 Last Admin: 03/04/21 04:06 Dose: 100 mls/hr Documented by: Vancomycin HCl 1.5 gm/ Premix 300 mls @ 200 mls/hr IV Q8H [facility] Last Admin: 03/04/21 03:59 Dose: 200 mls/hr Documented by: Meloxicam (Meloxicam 7.5 Mg Tab) 15 mg PO Q24H PRN PRN Reason: Pain Last Admin: 03/03/21 08:38 Dose: 15 mg Documented by: Pantoprazole Sodium (Pantoprazole 40 Mg Tab.Cr) 40 mg PO ACBREAKFAST [facility] Last Admin: 03/04/21 06:37 Dose: 40 mg Documented by: Rosuvastatin Calcium (Rosuvastatin 10 Mg Tab) 20 mg PO BEDTIME [facility] Last Admin: 03/03/21 20:22 Dose: 20 mg Documented by: Sodium Chloride (Sodium Chloride 0.9% 10 Ml Syringe) 10 ml FLUSH ASDIRECTED PRN PRN Reason: Keep Vein Open Last Admin: 03/02/21 03:35 Dose: 10 ml Documented by: Sodium Chloride (Sodium Chloride 0.9% 2.5 Ml Syringe) 2.5 ml FLUSH ASDIRECTED PRN PRN Reason: Keep Vein Open Last Admin: 03/02/21 03:35 Dose: 2.5 ml Documented by: Vancomycin HCl (Pharmacy To Dose - Vancomycin) 1 dose .XX ASDIRECTED [facility] Discontinued Medications Dexamethasone (Dexamethasone 10 Mg/Ml Sdv) 10 mg IVPUSH ONETIME ONE Stop: 03/02/21 03:36 Last Admin: 03/02/21 03:54 Dose: 10 mg Documented by: Sodium Chloride (Normal Saline) 1,000 mls @ 999 mls/hr IV .Bolus ONE Stop: 03/02/21 04:15 Last Admin: 03/02/21 03:35 Dose: 999 mls/hr Documented by: Remdesivir 200 mg/ Sodium (Chloride) 250 mls @ 250 mls/hr IV ONETIME ONE Stop: 03/02/21 03:36 Last Admin: 03/02/21 05:07 Dose: 250 mls/hr Documented by: Iopamidol (Iopamidol 755 Mg/Ml 500 Ml Multipack Bottle) 100 ml IVPUSH ONETIME STA Stop: 03/02/21 04:48 Last Admin: 03/02/21 04:48 Dose: 100 ml Documented by: - Exam General: Alert, Oriented HEENT: Pupils Equal Neck: Supple Lungs: Normal Respiratory Effort, Rhonchi Cardiovascular: Regular Rate, Regular Rhythm GI/Abdominal Exam: Normal Bowel Sounds, Soft, Non-Tender Extremities: Non-Tender, No Pedal Edema Skin: Warm, Dry, Intact Neurological: No New Focal Deficit - Patient Data Lab Results Last 24 hrs: Laboratory Results - last 24 hr 03/04/21 03/04/21 03/04/21 Range/Units 06:35 06:35 06:35 WBC 13.80 H (4.0-11.0) K/uL RBC 4.11 L (4.50-5.90) M/uL Hgb 12.1 L (13.0-17.0) g/dL Hct 37.1 L (38.0-50.0) % MCV 90.3 (80.0-98.0) fL MCH 29.4 (27.0-32.0) pg MCHC 32.6 (31.0-37.0) g/dL RDW Std Deviation 46.5 (28.0-62.0) fl RDW Coeff of Tin 14 (11.0-15.0) % Plt Count 631 H (150-400) K/uL MPV 9.40 (7.40-12.00) fL Neut % (Auto) 84.6 H (48.0-80.0) % Lymph % (Auto) 7.1 L (16.0-40.0) % [place] % (Auto) 8.0 (0.0-15.0) % Eos % (Auto) 0.3 (0.0-7.0) % Baso % (Auto) 0.0 (0.0-1.5) % Neut # (Auto) 11.7 H (1.4-5.7) K/uL Lymph # (Auto) 1.0 (0.6-2.4) K/uL [place] # (Auto) 1.1 H (0.0-0.8) K/uL Eos # (Auto) 0.0 (0.0-0.7) K/uL Baso # (Auto) 0.0 (0.0-0.1) K/uL Nucleated RBC % 0.0 /100WBC Nucleated RBCs # 0 K/uL Sodium 141 (136-148) mmol/L Potassium 4.8 (3.5-5.1) mmol/L Chloride 106 (98-107) mmol/L Carbon Dioxide 26.9 (21.0-32.0) mmol/L BUN 17 (7.0-18.0) mg/dL Creatinine 0.8 (0.8-1.3) mg/dL Est Cr Clr Drug Dosing 112.74 mL/min Estimated GFR (MDRD) > 60.0 ml/min Glucose 128 H (74-106) mg/dL Calcium 7.9 L (8.5-10.1) mg/dL Total Bilirubin 0.4 (0.2-1.0) mg/dL Direct Bilirubin 0.10 (0.0-0.5) mg/dL AST 32 (15-37) IU/L ALT 93 H (14-63) IU/L Alkaline Phosphatase 47 (46-116) U/L Total Protein 5.6 L (6.4-8.2) g/dL Albumin 2.3 L (3.4-5.0) g/dL Globulin 3.3 (2.6-4.0) g/dL Albumin/Globulin Ratio 0.7 L (0.9-1.6) Result Diagrams: 03/04/21 06:35 03/04/21 06:35 Artem Results Last 24 hrs: Microbiology 03/02/21 04:00 Bacteria Detection (PCR) - Final Blood 03/02/21 04:00 Aerobic Blood Culture - Final Blood - Venous - Lab Draw Anaerobic Blood Culture - Preliminary NO GROWTH AFTER 2 DAYS 03/02/21 03:33 Aerobic Blood Culture - Preliminary Blood - Venous NO GROWTH AFTER 2 DAYS Anaerobic Blood Culture - Preliminary NO GROWTH AFTER 2 DAYS Sepsis Event Note - Evaluation Sepsis Screening Result: No Definite Risk - Focused Exam Vital Signs: Vital Signs Temp Pulse Resp BP Pulse Ox 03/04/21 04:00 36.5 C 54 L 16 109/64 97 03/04/21 00:00 36.2 C 71 20 114/70 92 L - Problem List & Annotations (1) Pneumonia due to COVID-19 virus SNOMED Code(s): 940638434898683655 Code(s): U07.1 - COVID-19; J12.82 - PNEUMONIA DUE TO CORONAVIRUS DISEASE 2019 Status: Acute Current Visit: Yes (2) Respiratory failure with hypoxia SNOMED Code(s): 81965039073499130 Code(s): J96.91 - RESPIRATORY FAILURE, UNSPECIFIED WITH HYPOXIA Status: Acute Current Visit: Yes - Problem List Review Problem List Initiated/Reviewed/Updated: Yes - Plan Plan:: 1. Acute respiratory failure secondary to COVID-19 pneumonia -on 10 L NC supplemental oxygen -we will continue with remdesivir, dexamethason and combivent prn. -patient has been put on Combivent every 4 hours as needed for shortness of breath -Vancomycin was started due to 1/4 blood cultures growing gram positive cocci -incentive spirometry in prone position 2. Arthritis of the bilateral shoulders -continue the patient's home dose of meloxicam 15 mg per oral route once a day 3. Hyperlipidemia -continue the patient's home dosage of rosuvastatin 20 mg per oral route once a day 4. GERD -continue pantoprazole 40 mg per oral once a day.
[2021-03-04] MEDS: Dexamethasone 4 MG Tab PO SCH (09:21)
[2021-03-04] MEDS: Enoxaparin 40 MG/0.4 ML Syringe SUBCUT SCH (09:21)
[2021-03-04] MEDS: Rosuvastatin 10 MG Tab PO SCH (20:48)
[2021-03-04] MEDS: VANCOmycin 1.75 GM/350 ML 1.75 GM in Premix Bag 1 BAG IV SCH (21:44)
[2021-03-05] MEDS: guaiFENesin/Dextromethorphan 100-10 MG/5 ML Soln 10 ML Cup PO PRN ×3 (00:16→11:07)
[2021-03-05] MEDS: REMDESIVIR 100 MG in Sodium Chloride 0.9% 100 ML IV SCH (04:38)
[2021-03-05] MEDS: Albuterol/Ipratropium 4 GM Inhalation Spray INH PRN (04:46)
[2021-03-05] MEDS: VANCOmycin 1.75 GM/350 ML 1.75 GM in Premix Bag 1 BAG IV SCH ×2 (05:59→19:43)
[2021-03-05] MEDS: Pantoprazole 40 MG Tab.CR PO SCH (06:30)
[2021-03-05 07:52] LABS: BLOOD UREA NITROGEN,BUN 13 mg/dL (7.0-18.0); CARBON DIOXIDE,CO2 25.6 mmol/L (21.0-32.0); CHLORIDE,CL 104 mmol/L (98-107); GLUCOSE RANDOM 137 mg/dL (74-106); SODIUM,NA 139 mmol/L (136-148)
[2021-03-05] MEDS: VANCOmycin 1.5 GM/300 ML 1.5 GM in Premix Bag 1 BAG IV SCH (08:22)
[2021-03-05] MEDS: Dexamethasone 4 MG Tab PO SCH (09:52)
[2021-03-05] MEDS: Enoxaparin 40 MG/0.4 ML Syringe SUBCUT SCH (09:53)
--- NOTE | 2021-03-05 17:25 | PCM.PN ---
<Yumiko Munroe - Last Filed: 03/05/21 17:20> - General Info Date of Service: 03/05/21 Subjective Update: The patient is a 61-year-old male, significant past medical history of GERD, arthritis of both shoulders, Pang's esophagus, rheumatic fever, and hyperlipidemia, who was admitted for acute respiratory failure secondary to COVID-19 pneumonia. Upon interview today the patient admits that he feels less congested and his dyspnea upon movements around the room and to the restroom have decreased. His cough has also improved. He has no issues with urination and/or defecation. He is eating and drinking and has a healthy appetite. He is still on vancomycin antibiotic therapy. He is currently saturating 95% on 6 L of oxygen and is improving each day. He has no other concerns at this time. - Review of Systems General: Denies: Fever, Weakness, Fatigue HEENT: Denies: Contact Lenses Pulmonary: Reports: Cough. Denies: Pleuritic Chest Pain Cardiovascular: Reports: Dyspnea on Exertion. Denies: Chest Pain, Palpitations Gastrointestinal: Denies: Abdominal Pain, Constipation, Diarrhea Genitourinary: Denies: Dysuria - Patient Data Vitals - Most Recent: Last Vital Signs Temp 98.4 F 03/05/21 16:00 Pulse 69 03/05/21 16:00 Resp 20 03/05/21 16:00 BP 118/64 03/05/21 16:00 Pulse Ox 92 L 03/05/21 16:00 Weight - Most Recent: 95.708 kg Lab Results Last 24 Hours: Laboratory Results - last 24 hr 03/04/21 03/05/21 03/05/21 Range/Units 18:43 06:20 06:20 WBC 13.13 H (4.0-11.0) K/uL RBC 4.19 L (4.50-5.90) M/uL Hgb 12.4 L (13.0-17.0) g/dL Hct 37.8 L (38.0-50.0) % MCV 90.2 (80.0-98.0) fL MCH 29.6 (27.0-32.0) pg MCHC 32.8 (31.0-37.0) g/dL RDW Std Deviation 46.5 (28.0-62.0) fl RDW Coeff of Tin 14 (11.0-15.0) % Plt Count 672 H (150-400) K/uL MPV 9.70 (7.40-12.00) fL Neut % (Auto) 82.2 H (48.0-80.0) % Lymph % (Auto) 8.1 L (16.0-40.0) % [place] % (Auto) 9.2 (0.0-15.0) % Eos % (Auto) 0.4 (0.0-7.0) % Baso % (Auto) 0.1 (0.0-1.5) % Neut # (Auto) 10.8 H (1.4-5.7) K/uL Lymph # (Auto) 1.1 (0.6-2.4) K/uL [place] # (Auto) 1.2 H (0.0-0.8) K/uL Eos # (Auto) 0.1 (0.0-0.7) K/uL Baso # (Auto) 0.0 (0.0-0.1) K/uL Nucleated RBC % 0.0 /100WBC Nucleated RBCs # 0 K/uL Sodium (136-148) mmol/L Potassium (3.5-5.1) mmol/L Chloride (98-107) mmol/L Carbon Dioxide (21.0-32.0) mmol/L BUN (7.0-18.0) mg/dL Creatinine (0.8-1.3) mg/dL Est Cr Clr Drug Dosing mL/min Estimated GFR (MDRD) ml/min Glucose (74-106) mg/dL Calcium (8.5-10.1) mg/dL Total Bilirubin (0.2-1.0) mg/dL Direct Bilirubin 0.10 (0.0-0.5) mg/dL AST (15-37) IU/L ALT (14-63) IU/L Alkaline Phosphatase (46-116) U/L Total Protein (6.4-8.2) g/dL Albumin (3.4-5.0) g/dL Globulin (2.6-4.0) g/dL Albumin/Globulin Ratio (0.9-1.6) Vancomycin Trough 12.0 H (5.0-10.0) ug/mL 03/05/21 Range/Units 06:20 WBC (4.0-11.0) K/uL RBC (4.50-5.90) M/uL Hgb (13.0-17.0) g/dL Hct (38.0-50.0) % MCV (80.0-98.0) fL MCH (27.0-32.0) pg MCHC (31.0-37.0) g/dL RDW Std Deviation (28.0-62.0) fl RDW Coeff of Tin (11.0-15.0) % Plt Count (150-400) K/uL MPV (7.40-12.00) fL Neut % (Auto) (48.0-80.0) % Lymph % (Auto) (16.0-40.0) % [place] % (Auto) (0.0-15.0) % Eos % (Auto) (0.0-7.0) % Baso % (Auto) (0.0-1.5) % Neut # (Auto) (1.4-5.7) K/uL Lymph # (Auto) (0.6-2.4) K/uL [place] # (Auto) (0.0-0.8) K/uL Eos # (Auto) (0.0-0.7) K/uL Baso # (Auto) (0.0-0.1) K/uL Nucleated RBC % /100WBC Nucleated RBCs # K/uL Sodium 139 (136-148) mmol/L Potassium 5.0 (3.5-5.1) mmol/L Chloride 104 (98-107) mmol/L Carbon Dioxide 25.6 (21.0-32.0) mmol/L BUN 13 (7.0-18.0) mg/dL Creatinine 0.8 (0.8-1.3) mg/dL Est Cr Clr Drug Dosing 112.74 mL/min Estimated GFR (MDRD) > 60.0 ml/min Glucose 137 H (74-106) mg/dL Calcium 7.8 L (8.5-10.1) mg/dL Total Bilirubin 0.4 (0.2-1.0) mg/dL Direct Bilirubin (0.0-0.5) mg/dL AST 22 (15-37) IU/L ALT 73 H (14-63) IU/L Alkaline Phosphatase 52 (46-116) U/L Total Protein 5.5 L (6.4-8.2) g/dL Albumin 2.2 L (3.4-5.0) g/dL Globulin 3.3 (2.6-4.0) g/dL Albumin/Globulin Ratio 0.7 L (0.9-1.6) Vancomycin Trough (5.0-10.0) ug/mL Artem Results Last 24 Hours: Microbiology 03/02/21 04:00 Blood Culture Identification Panel - Preliminary Blood Staphylococcus Coagulase Neg 03/03/21 11:30 Aerobic Blood Culture - Preliminary Blood - Venous - Lab Draw NO GROWTH AFTER 2 DAYS Anaerobic Blood Culture - Preliminary NO GROWTH AFTER 2 DAYS 03/03/21 11:20 Aerobic Blood Culture - Preliminary Blood - Venous NO GROWTH AFTER 2 DAYS Anaerobic Blood Culture - Preliminary NO GROWTH AFTER 2 DAYS 03/02/21 04:00 Aerobic Blood Culture - Final Blood - Venous - Lab Draw Anaerobic Blood Culture - Preliminary NO GROWTH AFTER 3 DAYS 03/02/21 03:33 Aerobic Blood Culture - Preliminary Blood - Venous NO GROWTH AFTER 3 DAYS Anaerobic Blood Culture - Preliminary NO GROWTH AFTER 3 DAYS Med Orders - Current: Current Medications Albuterol/Ipratropium (Albuterol/Ipratropium 4 Gm Inhalation Denbo) 1 gm INH Q4H PRN PRN Reason: Dyspnea Last Admin: 03/05/21 04:46 Dose: 1 puff Documented by: Dexamethasone (Dexamethasone 4 Mg Tab) 6 mg PO DAILY [facility] Last Admin: 03/05/21 09:52 Dose: 6 mg Documented by: Enoxaparin Sodium (Enoxaparin 40 Mg/0.4 Ml Syringe) 40 mg SUBCUT Q24H [facility] Last Admin: 03/05/21 09:53 Dose: 40 mg Documented by: Guaifenesin/Dextromethorphan (Guaifenesin/Dextromethorphan 100-10 Mg/5 Ml Soln 10 Ml Cup) 10 ml PO Q4H PRN PRN Reason: Cough Last Admin: 03/05/21 11:07 Dose: 10 ml Documented by: Remdesivir 100 mg/ Sodium (Chloride) 100 mls @ 100 mls/hr IV Q24H [facility] Stop: 03/06/21 05:59 Last Admin: 03/05/21 04:38 Dose: 100 mls/hr Documented by: Meloxicam (Meloxicam 7.5 Mg Tab) 15 mg PO Q24H PRN PRN Reason: Pain Last Admin: 03/03/21 08:38 Dose: 15 mg Documented by: Pantoprazole Sodium (Pantoprazole 40 Mg Tab.Cr) 40 mg PO ACBREAKFAST [facility] Last Admin: 03/05/21 06:30 Dose: 40 mg Documented by: Rosuvastatin Calcium (Rosuvastatin 10 Mg Tab) 20 mg PO BEDTIME [facility] Last Admin: 03/04/21 20:48 Dose: 20 mg Documented by: Sodium Chloride (Sodium Chloride 0.9% 10 Ml Syringe) 10 ml FLUSH ASDIRECTED PRN PRN Reason: Keep Vein Open Last Admin: 03/02/21 03:35 Dose: 10 ml Documented by: Sodium Chloride (Sodium Chloride 0.9% 2.5 Ml Syringe) 2.5 ml FLUSH ASDIRECTED PRN PRN Reason: Keep Vein Open Last Admin: 03/02/21 03:35 Dose: 2.5 ml Documented by: Vancomycin HCl (Pharmacy To Dose - Vancomycin) 1 dose .XX ASDIRECTED [facility] Discontinued Medications Dexamethasone (Dexamethasone 10 Mg/Ml Sdv) 10 mg IVPUSH ONETIME ONE Stop: 03/02/21 03:36 Last Admin: 03/02/21 03:54 Dose: 10 mg Documented by: Sodium Chloride (Normal Saline) 1,000 mls @ 999 mls/hr IV .Bolus ONE Stop: 03/02/21 04:15 Last Admin: 03/02/21 03:35 Dose: 999 mls/hr Documented by: Remdesivir 200 mg/ Sodium (Chloride) 250 mls @ 250 mls/hr IV ONETIME ONE Stop: 03/02/21 03:36 Last Admin: 03/02/21 05:07 Dose: 250 mls/hr Documented by: Vancomycin HCl 1.5 gm/ Premix 300 mls @ 200 mls/hr IV Q8H [facility] Last Admin: 03/05/21 08:22 Dose: Not Given Documented by: Vancomycin HCl 1.75 gm/ Premix 350 mls @ 200 mls/hr IV Q8H [facility] Last Admin: 03/05/21 05:59 Dose: 200 mls/hr Documented by: Iopamidol (Iopamidol 755 Mg/Ml 500 Ml Multipack Bottle) 100 ml IVPUSH ONETIME STA Stop: 03/02/21 04:48 Last Admin: 03/02/21 04:48 Dose: 100 ml Documented by: - Exam General: Alert, Oriented, Cooperative HEENT: Mucous Membr. Moist/[place] Lungs: Clear to Auscultation, Normal Respiratory Effort Cardiovascular: Regular Rate, Regular Rhythm, No Murmurs GI/Abdominal Exam: Normal Bowel Sounds, Soft, Non-Tender - Patient Data Lab Results Last 24 hrs: Laboratory Results - last 24 hr 03/04/21 03/05/21 03/05/21 Range/Units 18:43 06:20 06:20 WBC 13.13 H (4.0-11.0) K/uL RBC 4.19 L (4.50-5.90) M/uL Hgb 12.4 L (13.0-17.0) g/dL Hct 37.8 L (38.0-50.0) % MCV 90.2 (80.0-98.0) fL MCH 29.6 (27.0-32.0) pg MCHC 32.8 (31.0-37.0) g/dL RDW Std Deviation 46.5 (28.0-62.0) fl RDW Coeff of Tin 14 (11.0-15.0) % Plt Count 672 H (150-400) K/uL MPV 9.70 (7.40-12.00) fL Neut % (Auto) 82.2 H (48.0-80.0) % Lymph % (Auto) 8.1 L (16.0-40.0) % [place] % (Auto) 9.2 (0.0-15.0) % Eos % (Auto) 0.4 (0.0-7.0) % Baso % (Auto) 0.1 (0.0-1.5) % Neut # (Auto) 10.8 H (1.4-5.7) K/uL Lymph # (Auto) 1.1 (0.6-2.4) K/uL [place] # (Auto) 1.2 H (0.0-0.8) K/uL Eos # (Auto) 0.1 (0.0-0.7) K/uL Baso # (Auto) 0.0 (0.0-0.1) K/uL Nucleated RBC % 0.0 /100WBC Nucleated RBCs # 0 K/uL Sodium (136-148) mmol/L Potassium (3.5-5.1) mmol/L Chloride (98-107) mmol/L Carbon Dioxide (21.0-32.0) mmol/L BUN (7.0-18.0) mg/dL Creatinine (0.8-1.3) mg/dL Est Cr Clr Drug Dosing mL/min Estimated GFR (MDRD) ml/min Glucose (74-106) mg/dL Calcium (8.5-10.1) mg/dL Total Bilirubin (0.2-1.0) mg/dL Direct Bilirubin 0.10 (0.0-0.5) mg/dL AST (15-37) IU/L ALT (14-63) IU/L Alkaline Phosphatase (46-116) U/L Total Protein (6.4-8.2) g/dL Albumin (3.4-5.0) g/dL Globulin (2.6-4.0) g/dL Albumin/Globulin Ratio (0.9-1.6) Vancomycin Trough 12.0 H (5.0-10.0) ug/mL 03/05/21 Range/Units 06:20 WBC (4.0-11.0) K/uL RBC (4.50-5.90) M/uL Hgb (13.0-17.0) g/dL Hct (38.0-50.0) % MCV (80.0-98.0) fL MCH (27.0-32.0) pg MCHC (31.0-37.0) g/dL RDW Std Deviation (28.0-62.0) fl RDW Coeff of Tin (11.0-15.0) % Plt Count (150-400) K/uL MPV (7.40-12.00) fL Neut % (Auto) (48.0-80.0) % Lymph % (Auto) (16.0-40.0) % [place] % (Auto) (0.0-15.0) % Eos % (Auto) (0.0-7.0) % Baso % (Auto) (0.0-1.5) % Neut # (Auto) (1.4-5.7) K/uL Lymph # (Auto) (0.6-2.4) K/uL [place] # (Auto) (0.0-0.8) K/uL Eos # (Auto) (0.0-0.7) K/uL Baso # (Auto) (0.0-0.1) K/uL Nucleated RBC % /100WBC Nucleated RBCs # K/uL Sodium 139 (136-148) mmol/L Potassium 5.0 (3.5-5.1) mmol/L Chloride 104 (98-107) mmol/L Carbon Dioxide 25.6 (21.0-32.0) mmol/L BUN 13 (7.0-18.0) mg/dL Creatinine 0.8 (0.8-1.3) mg/dL Est Cr Clr Drug Dosing 112.74 mL/min Estimated GFR (MDRD) > 60.0 ml/min Glucose 137 H (74-106) mg/dL Calcium 7.8 L (8.5-10.1) mg/dL Total Bilirubin 0.4 (0.2-1.0) mg/dL Direct Bilirubin (0.0-0.5) mg/dL AST 22 (15-37) IU/L ALT 73 H (14-63) IU/L Alkaline Phosphatase 52 (46-116) U/L Total Protein 5.5 L (6.4-8.2) g/dL Albumin 2.2 L (3.4-5.0) g/dL Globulin 3.3 (2.6-4.0) g/dL Albumin/Globulin Ratio 0.7 L (0.9-1.6) Vancomycin Trough (5.0-10.0) ug/mL Result Diagrams: 03/05/21 06:20 03/05/21 06:20 Artem Results Last 24 hrs: Microbiology 03/02/21 04:00 Blood Culture Identification Panel - Preliminary Blood Staphylococcus Coagulase Neg 03/03/21 11:30 Aerobic Blood Culture - Preliminary Blood - Venous - Lab Draw NO GROWTH AFTER 2 DAYS Anaerobic Blood Culture - Preliminary NO GROWTH AFTER 2 DAYS 03/03/21 11:20 Aerobic Blood Culture - Preliminary Blood - Venous NO GROWTH AFTER 2 DAYS Anaerobic Blood Culture - Preliminary NO GROWTH AFTER 2 DAYS 03/02/21 04:00 Aerobic Blood Culture - Final Blood - Venous - Lab Draw Anaerobic Blood Culture - Preliminary NO GROWTH AFTER 3 DAYS 03/02/21 03:33 Aerobic Blood Culture - Preliminary Blood - Venous NO GROWTH AFTER 3 DAYS Anaerobic Blood Culture - Preliminary NO GROWTH AFTER 3 DAYS Sepsis Event Note - Evaluation Sepsis Screening Result: No Definite Risk - Focused Exam Vital Signs: Vital Signs Temp Pulse Resp BP Pulse Ox 03/05/21 16:00 98.4 F 69 20 118/64 92 L 03/05/21 11:35 98 F 71 18 132/72 94 L 03/05/21 09:44 98 F 69 16 114/61 94 L - Problem List & Annotations (1) Arthritis SNOMED Code(s): 6469394 Code(s): M19.90 - UNSPECIFIED OSTEOARTHRITIS, UNSPECIFIED SITE Status: Acute Current Visit: Yes (2) Pneumonia due to COVID-19 virus SNOMED Code(s): 151835821116653144 Code(s): U07.1 - COVID-19; J12.82 - PNEUMONIA DUE TO CORONAVIRUS DISEASE 2018 Status: Acute Current Visit: Yes (3) Respiratory failure with hypoxia SNOMED Code(s): 44178374599851958 Code(s): J96.91 - RESPIRATORY FAILURE, UNSPECIFIED WITH HYPOXIA Status: Acute Current Visit: Yes (4) Hyperlipidemia SNOMED Code(s): 21323401 Code(s): E78.5 - HYPERLIPIDEMIA, UNSPECIFIED Status: Acute Current Visit: Yes - Problem List Review Problem List Initiated/Reviewed/Updated: Yes - My Orders Last 24 Hours: My Active Orders 03/06/21 05:11 CBC WITH AUTO DIFF [HEME] AM CMP [COMPREHENSIVE METABOLIC PN,CMP] [CHEM] AM 03/07/21 05:11 CBC WITH AUTO DIFF [HEME] AM CMP [COMPREHENSIVE METABOLIC PN,CMP] [CHEM] AM - Plan Plan:: 1. Acute respiratory failure secondary to COVID-19 pneumonia -on 6 L NC supplemental oxygen -we will continue with remdesivir, dexamethason and combivent prn. -patient has been put on Combivent every 4 hours as needed for shortness of breath -continue Vancomycin 1.75 g every 8 hours -incentive spirometry in prone position 2. Arthritis of the bilateral shoulders -continue the patient's home dose of meloxicam 15 mg per oral route once a day 3. Hyperlipidemia -continue the patient's home dosage of rosuvastatin 20 mg per oral route once a day 4. GERD -continue pantoprazole 40 mg per oral once a day. <Nichole Esparza - Last Filed: 03/07/21 14:50> - Patient Data Vitals - Most Recent: Last Vital Signs Temp 35.9 C L 03/07/21 13:17 Pulse 75 03/07/21 13:17 Resp 17 03/07/21 13:17 BP 109/72 03/07/21 13:17 Pulse Ox 90 L 03/07/21 13:17 I&O - Last 24 Hours: Intake & Output 03/06/21 03/07/21 03/07/21 22:59 06:59 14:59 Intake Total 1100 1500 1370 Output Total 770 2060 625 Balance 330 -560 745 Lab Results Last 24 Hours: Laboratory Results - last 24 hr 03/07/21 03/07/21 Range/Units 05:35 05:35 WBC 13.19 H (4.0-11.0) K/uL RBC 4.55 (4.50-5.90) M/uL Hgb 13.6 (13.0-17.0) g/dL Hct 40.6 (38.0-50.0) % MCV 89.2 (80.0-98.0) fL MCH 29.9 (27.0-32.0) pg MCHC 33.5 (31.0-37.0) g/dL RDW Std Deviation 45.3 (28.0-62.0) fl RDW Coeff of Tin 14 (11.0-15.0) % Plt Count 771 H (150-400) K/uL MPV 9.50 (7.40-12.00) fL Neut % (Auto) 80.4 H (48.0-80.0) % Lymph % (Auto) 10.2 L (16.0-40.0) % [place] % (Auto) 9.2 (0.0-15.0) % Eos % (Auto) 0.1 (0.0-7.0) % Baso % (Auto) 0.1 (0.0-1.5) % Neut # (Auto) 10.6 H (1.4-5.7) K/uL Lymph # (Auto) 1.3 (0.6-2.4) K/uL [place] # (Auto) 1.2 H (0.0-0.8) K/uL Eos # (Auto) 0.0 (0.0-0.7) K/uL Baso # (Auto) 0.0 (0.0-0.1) K/uL Nucleated RBC % 0.0 /100WBC Nucleated RBCs # 0 K/uL Sodium 138 (136-148) mmol/L Potassium 5.2 H (3.5-5.1) mmol/L Chloride 101 (98-107) mmol/L Carbon Dioxide 27.5 (21.0-32.0) mmol/L BUN 16 (7.0-18.0) mg/dL Creatinine 1.0 (0.8-1.3) mg/dL Est Cr Clr Drug Dosing 90.19 mL/min Estimated GFR (MDRD) > 60.0 ml/min Glucose 180 H (74-106) mg/dL Calcium 8.5 (8.5-10.1) mg/dL Total Bilirubin 0.4 (0.2-1.0) mg/dL AST 13 L (15-37) IU/L ALT 69 H (14-63) IU/L Alkaline Phosphatase 61 (46-116) U/L Total Protein 6.1 L (6.4-8.2) g/dL Albumin 2.6 L (3.4-5.0) g/dL Globulin 3.5 (2.6-4.0) g/dL Albumin/Globulin Ratio 0.7 L (0.9-1.6) Artem Results Last 24 Hours: Microbiology 03/03/21 11:30 Aerobic Blood Culture - Preliminary Blood - Venous - Lab Draw NO GROWTH AFTER 4 DAYS Anaerobic Blood Culture - Preliminary NO GROWTH AFTER 4 DAYS 03/03/21 11:20 Aerobic Blood Culture - Preliminary Blood - Venous NO GROWTH AFTER 4 DAYS Anaerobic Blood Culture - Preliminary NO GROWTH AFTER 4 DAYS 03/02/21 04:00 Aerobic Blood Culture - Final Blood - Venous - Lab Draw Anaerobic Blood Culture - Final NO GROWTH AFTER 5 DAYS 03/02/21 03:33 Aerobic Blood Culture - Final Blood - Venous NO GROWTH AFTER 5 DAYS Anaerobic Blood Culture - Final NO GROWTH AFTER 5 DAYS 03/02/21 04:00 Blood Culture Identification Panel - Final Blood Staphylococcus Coagulase Neg Med Orders - Current: Current Medications Albuterol/Ipratropium (Albuterol/Ipratropium 4 Gm Inhalation [place]) 1 gm INH Q4H PRN PRN Reason: Dyspnea Last Admin: 03/07/21 07:30 Dose: 1 puff Documented by: Dexamethasone (Dexamethasone 4 Mg Tab) 6 mg PO DAILY [facility] Last Admin: 03/07/21 09:57 Dose: 6 mg Documented by: Enoxaparin Sodium (Enoxaparin 40 Mg/0.4 Ml Syringe) 40 mg SUBCUT Q24H [facility] Last Admin: 03/07/21 09:57 Dose: 40 mg Documented by: Guaifenesin (Guaifenesin 100 Mg/5 Ml Soln 5 Ml Ud Cup) 100 mg PO Q4H PRN PRN Reason: Cough Meloxicam (Meloxicam 7.5 Mg Tab) 15 mg PO Q24H PRN PRN Reason: Pain Last Admin: 03/03/21 08:38 Dose: 15 mg Documented by: Pantoprazole Sodium (Pantoprazole 40 Mg Tab.Cr) 40 mg PO ACBREAKFAST [facility] Last Admin: 03/07/21 07:29 Dose: 40 mg Documented by: Rosuvastatin Calcium (Rosuvastatin 10 Mg Tab) 20 mg PO BEDTIME [facility] Last Admin: 03/06/21 21:10 Dose: 20 mg Documented by: Sodium Chloride (Sodium Chloride 0.9% 10 Ml Syringe) 10 ml FLUSH ASDIRECTED PRN PRN Reason: Keep Vein Open Last Admin: 03/02/21 03:35 Dose: 10 ml Documented by: Sodium Chloride (Sodium Chloride 0.9% 2.5 Ml Syringe) 2.5 ml FLUSH ASDIRECTED PRN PRN Reason: Keep Vein Open Last Admin: 03/02/21 03:35 Dose: 2.5 ml Documented by: Discontinued Medications Dexamethasone (Dexamethasone 10 Mg/Ml Sdv) 10 mg IVPUSH ONETIME ONE Stop: 03/02/21 03:36 Last Admin: 03/02/21 03:54 Dose: 10 mg Documented by: Guaifenesin/Dextromethorphan (Guaifenesin/Dextromethorphan 100-10 Mg/5 Ml Soln 1 0 Ml Cup) 10 ml PO Q4H PRN PRN Reason: Cough Last Admin: 03/06/21 18:12 Dose: 10 ml Documented by: Sodium Chloride (Normal Saline) 1,000 mls @ 999 mls/hr IV .Bolus ONE Stop: 03/02/21 04:15 Last Admin: 03/02/21 03:35 Dose: 999 mls/hr Documented by: Remdesivir 200 mg/ Sodium (Chloride) 250 mls @ 250 mls/hr IV ONETIME ONE Stop: 03/02/21 03:36 Last Admin: 03/02/21 05:07 Dose: 250 mls/hr Documented by: Remdesivir 100 mg/ Sodium (Chloride) 100 mls @ 100 mls/hr IV Q24H [facility] Stop: 03/06/21 05:59 Last Admin: 03/06/21 04:44 Dose: 100 mls/hr Documented by: Vancomycin HCl 1.5 gm/ Premix 300 mls @ 200 mls/hr IV Q8H [facility] Last Admin: 03/05/21 08:22 Dose: Not Given Documented by: Vancomycin HCl 1.75 gm/ Premix 350 mls @ 200 mls/hr IV Q8H [facility] Last Admin: 03/05/21 19:43 Dose: Not Given Documented by: Iopamidol (Iopamidol 755 Mg/Ml 500 Ml Multipack Bottle) 100 ml IVPUSH ONETIME STA Stop: 03/02/21 04:48 Last Admin: 03/02/21 04:48 Dose: 100 ml Documented by: Vancomycin HCl (Pharmacy To Dose - Vancomycin) 1 dose .XX ASDIRECTED [facility] - Patient Data Lab Results Last 24 hrs: Laboratory Results - last 24 hr 03/07/21 03/07/21 Range/Units 05:35 05:35 WBC 13.19 H (4.0-11.0) K/uL RBC 4.55 (4.50-5.90) M/uL Hgb 13.6 (13.0-17.0) g/dL Hct 40.6 (38.0-50.0) % MCV 89.2 (80.0-98.0) fL MCH 29.9 (27.0-32.0) pg MCHC 33.5 (31.0-37.0) g/dL RDW Std Deviation 45.3 (28.0-62.0) fl RDW Coeff of Tin 14 (11.0-15.0) % Plt Count 771 H (150-400) K/uL MPV 9.50 (7.40-12.00) fL Neut % (Auto) 80.4 H (48.0-80.0) % Lymph % (Auto) 10.2 L (16.0-40.0) % [place] % (Auto) 9.2 (0.0-15.0) % Eos % (Auto) 0.1 (0.0-7.0) % Baso % (Auto) 0.1 (0.0-1.5) % Neut # (Auto) 10.6 H (1.4-5.7) K/uL Lymph # (Auto) 1.3 (0.6-2.4) K/uL [place] # (Auto) 1.2 H (0.0-0.8) K/uL Eos # (Auto) 0.0 (0.0-0.7) K/uL Baso # (Auto) 0.0 (0.0-0.1) K/uL Nucleated RBC % 0.0 /100WBC Nucleated RBCs # 0 K/uL Sodium 138 (136-148) mmol/L Potassium 5.2 H (3.5-5.1) mmol/L Chloride 101 (98-107) mmol/L Carbon Dioxide 27.5 (21.0-32.0) mmol/L BUN 16 (7.0-18.0) mg/dL Creatinine 1.0 (0.8-1.3) mg/dL Est Cr Clr Drug Dosing 90.19 mL/min Estimated GFR (MDRD) > 60.0 ml/min Glucose 180 H (74-106) mg/dL Calcium 8.5 (8.5-10.1) mg/dL Total Bilirubin 0.4 (0.2-1.0) mg/dL AST 13 L (15-37) IU/L ALT 69 H (14-63) IU/L Alkaline Phosphatase 61 (46-116) U/L Total Protein 6.1 L (6.4-8.2) g/dL Albumin 2.6 L (3.4-5.0) g/dL Globulin 3.5 (2.6-4.0) g/dL Albumin/Globulin Ratio 0.7 L (0.9-1.6) Result Diagrams: 03/07/21 05:35 03/07/21 05:35 Artem Results Last 24 hrs: Microbiology 03/03/21 11:30 Aerobic Blood Culture - Preliminary Blood - Venous - Lab Draw NO GROWTH AFTER 4 DAYS Anaerobic Blood Culture - Preliminary NO GROWTH AFTER 4 DAYS 03/03/21 11:20 Aerobic Blood Culture - Preliminary Blood - Venous NO GROWTH AFTER 4 DAYS Anaerobic Blood Culture - Preliminary NO GROWTH AFTER 4 DAYS 03/02/21 04:00 Aerobic Blood Culture - Final Blood - Venous - Lab Draw Anaerobic Blood Culture - Final NO GROWTH AFTER 5 DAYS 03/02/21 03:33 Aerobic Blood Culture - Final Blood - Venous NO GROWTH AFTER 5 DAYS Anaerobic Blood Culture - Final NO GROWTH AFTER 5 DAYS 03/02/21 04:00 Blood Culture Identification Panel - Final Blood Staphylococcus Coagulase Neg Sepsis Event Note - Focused Exam Vital Signs: Vital Signs Temp Pulse Resp BP Pulse Ox 03/07/21 13:17 35.9 C L 75 17 109/72 90 L 03/07/21 09:39 36.9 C 76 18 121/64 90 L 03/07/21 05:00 36.3 C 14 105/77 90 L - My Orders Last 24 Hours: My Active Orders 03/07/21 11:07 Ready for Discharge [RC] PER UNIT ROUTINE - Plan Plan:: I have seen and evaluated the patient and agree with the residents note unless specified in my note I
[2021-03-05] MEDS: Rosuvastatin 10 MG Tab PO SCH (20:43)
[2021-03-06] MEDS: guaiFENesin/Dextromethorphan 100-10 MG/5 ML Soln 10 ML Cup PO PRN ×4 (00:55→18:12)
[2021-03-06] MEDS: Albuterol/Ipratropium 4 GM Inhalation Spray INH PRN ×3 (00:56→21:16)
[2021-03-06] MEDS: REMDESIVIR 100 MG in Sodium Chloride 0.9% 100 ML IV SCH (04:44)
[2021-03-06] MEDS: Pantoprazole 40 MG Tab.CR PO SCH (07:06)
[2021-03-06 07:21] LABS: BLOOD UREA NITROGEN,BUN 15 mg/dL (7.0-18.0); CARBON DIOXIDE,CO2 27.6 mmol/L (21.0-32.0); CHLORIDE,CL 102 mmol/L (98-107); GLUCOSE RANDOM 195 mg/dL (74-106); POTASSIUM,K 4.7 mmol/L (3.5-5.1); SODIUM,NA 138 mmol/L (136-148)
[2021-03-06] MEDS: Dexamethasone 4 MG Tab PO SCH (08:37)
[2021-03-06] MEDS: Enoxaparin 40 MG/0.4 ML Syringe SUBCUT SCH (09:49)
--- NOTE | 2021-03-06 17:14 | PCM.PN ---
<Yumiko Munroe - Last Filed: 03/06/21 17:09> - General Info Date of Service: 03/06/21 Subjective Update: The patient is a 61-year-old male, significant past medical history of GERD, arthritis of both shoulders, Pang's esophagus, rheumatic fever, and hyperlipidemia, who was admitted for acute respiratory failure secondary to COVID-19 pneumonia. Upon interview today the patient admits his dyspnea upon movements around the room is mostly gone and only occurs for a minute after he rests. His cough has improved. He has no issues with urination and/or defecation. He is eating and drinking and has a healthy appetite. His vancomycin treatment was discontinued as it was found to be contaminant. He is currently saturating 90-92% on 2.5 L of oxygen and is improving each day. Respiratory therapy will work with the patient later today to decipher if he can go down on his oxygen requirement. Based on his improvements the patient will most likely be discharged tomorrow and be sent home on oxygen. He has no other concerns at this time. - Review of Systems General: Denies: Fever, Weakness, Fatigue HEENT: Denies: Headaches, Sore Throat Pulmonary: Denies: Shortness of Breath, Cough Cardiovascular: Reports: Dyspnea on Exertion. Denies: Chest Pain, Palpitations, Orthopnea Gastrointestinal: Denies: Abdominal Pain Genitourinary: Denies: Dysuria - Patient Data Vitals - Most Recent: Last Vital Signs Temp 97 F 03/06/21 15:21 Pulse 83 03/06/21 15:21 Resp 18 03/06/21 15:21 BP 161/91 H 03/06/21 11:30 Pulse Ox 91 L 03/06/21 15:21 Weight - Most Recent: 95.708 kg I&O - Last 24 Hours: Intake & Output 03/06/21 03/06/21 03/06/21 06:59 14:59 22:59 Intake Total 1510 1100 Output Total 1025 770 Balance 485 330 Lab Results Last 24 Hours: Laboratory Results - last 24 hr 03/06/21 03/06/21 Range/Units 06:30 06:30 WBC 12.52 H (4.0-11.0) K/uL RBC 4.33 L (4.50-5.90) M/uL Hgb 12.8 L (13.0-17.0) g/dL Hct 38.7 (38.0-50.0) % MCV 89.4 (80.0-98.0) fL MCH 29.6 (27.0-32.0) pg MCHC 33.1 (31.0-37.0) g/dL RDW Std Deviation 45.9 (28.0-62.0) fl RDW Coeff of Tin 14 (11.0-15.0) % Plt Count 754 H (150-400) K/uL MPV 9.40 (7.40-12.00) fL Neut % (Auto) 78.4 (48.0-80.0) % Lymph % (Auto) 11.2 L (16.0-40.0) % Mayes % (Auto) 10.1 (0.0-15.0) % Eos % (Auto) 0.2 (0.0-7.0) % Baso % (Auto) 0.1 (0.0-1.5) % Neut # (Auto) 9.8 H (1.4-5.7) K/uL Lymph # (Auto) 1.4 (0.6-2.4) K/uL Mayes # (Auto) 1.3 H (0.0-0.8) K/uL Eos # (Auto) 0.0 (0.0-0.7) K/uL Baso # (Auto) 0.0 (0.0-0.1) K/uL Nucleated RBC % 0.0 /100WBC Nucleated RBCs # 0 K/uL Sodium 138 (136-148) mmol/L Potassium 4.7 (3.5-5.1) mmol/L Chloride 102 (98-107) mmol/L Carbon Dioxide 27.6 (21.0-32.0) mmol/L BUN 15 (7.0-18.0) mg/dL Creatinine 0.9 (0.8-1.3) mg/dL Est Cr Clr Drug Dosing 100.21 mL/min Estimated GFR (MDRD) > 60.0 ml/min Glucose 195 H (74-106) mg/dL Calcium 8.1 L (8.5-10.1) mg/dL Total Bilirubin 0.3 (0.2-1.0) mg/dL AST 15 (15-37) IU/L ALT 66 H (14-63) IU/L Alkaline Phosphatase 56 (46-116) U/L Total Protein 5.6 L (6.4-8.2) g/dL Albumin 2.3 L (3.4-5.0) g/dL Globulin 3.3 (2.6-4.0) g/dL Albumin/Globulin Ratio 0.7 L (0.9-1.6) Artem Results Last 24 Hours: Microbiology 03/03/21 11:30 Aerobic Blood Culture - Preliminary Blood - Venous - Lab Draw NO GROWTH AFTER 3 DAYS Anaerobic Blood Culture - Preliminary NO GROWTH AFTER 3 DAYS 03/03/21 11:20 Aerobic Blood Culture - Preliminary Blood - Venous NO GROWTH AFTER 3 DAYS Anaerobic Blood Culture - Preliminary NO GROWTH AFTER 3 DAYS 03/02/21 04:00 Blood Culture Identification Panel - Final Blood Staphylococcus Coagulase Neg 03/02/21 04:00 Aerobic Blood Culture - Final Blood - Venous - Lab Draw Anaerobic Blood Culture - Preliminary NO GROWTH AFTER 4 DAYS 03/02/21 03:33 Aerobic Blood Culture - Preliminary Blood - Venous NO GROWTH AFTER 4 DAYS Anaerobic Blood Culture - Preliminary NO GROWTH AFTER 4 DAYS Med Orders - Current: Current Medications Albuterol/Ipratropium (Albuterol/Ipratropium 4 Gm Inhalation [place]) 1 gm INH Q4H PRN PRN Reason: Dyspnea Last Admin: 03/06/21 11:48 Dose: 1 puff Documented by: Dexamethasone (Dexamethasone 4 Mg Tab) 6 mg PO DAILY [facility] Last Admin: 03/06/21 08:37 Dose: 6 mg Documented by: Enoxaparin Sodium (Enoxaparin 40 Mg/0.4 Ml Syringe) 40 mg SUBCUT Q24H [facility] Last Admin: 03/06/21 09:49 Dose: 40 mg Documented by: Guaifenesin/Dextromethorphan (Guaifenesin/Dextromethorphan 100-10 Mg/5 Ml Soln 10 Ml Cup) 10 ml PO Q4H PRN PRN Reason: Cough Last Admin: 03/06/21 13:27 Dose: 10 ml Documented by: Meloxicam (Meloxicam 7.5 Mg Tab) 15 mg PO Q24H PRN PRN Reason: Pain Last Admin: 03/03/21 08:38 Dose: 15 mg Documented by: Pantoprazole Sodium (Pantoprazole 40 Mg Tab.Cr) 40 mg PO ACBREAKFAST LYLE Last Admin: 03/06/21 07:06 Dose: 40 mg Documented by: Rosuvastatin Calcium (Rosuvastatin 10 Mg Tab) 20 mg PO BEDTIME LYLE Last Admin: 03/05/21 20:43 Dose: 20 mg Documented by: Sodium Chloride (Sodium Chloride 0.9% 10 Ml Syringe) 10 ml FLUSH ASDIRECTED PRN PRN Reason: Keep Vein Open Last Admin: 03/02/21 03:35 Dose: 10 ml Documented by: Sodium Chloride (Sodium Chloride 0.9% 2.5 Ml Syringe) 2.5 ml FLUSH ASDIRECTED PRN PRN Reason: Keep Vein Open Last Admin: 03/02/21 03:35 Dose: 2.5 ml Documented by: Discontinued Medications Dexamethasone (Dexamethasone 10 Mg/Ml Sdv) 10 mg IVPUSH ONETIME ONE Stop: 03/02/21 03:36 Last Admin: 03/02/21 03:54 Dose: 10 mg Documented by: Sodium Chloride (Normal Saline) 1,000 mls @ 999 mls/hr IV .Bolus ONE Stop: 03/02/21 04:15 Last Admin: 03/02/21 03:35 Dose: 999 mls/hr Documented by: Remdesivir 200 mg/ Sodium (Chloride) 250 mls @ 250 mls/hr IV ONETIME ONE Stop: 03/02/21 03:36 Last Admin: 03/02/21 05:07 Dose: 250 mls/hr Documented by: Remdesivir 100 mg/ Sodium (Chloride) 100 mls @ 100 mls/hr IV Q24H [place]YLE Stop: 03/06/21 05:59 Last Admin: 03/06/21 04:44 Dose: 100 mls/hr Documented by: Vancomycin HCl 1.5 gm/ Premix 300 mls @ 200 mls/hr IV Q8H [facility] Last Admin: 03/05/21 08:22 Dose: Not Given Documented by: Vancomycin HCl 1.75 gm/ Premix 350 mls @ 200 mls/hr IV Q8H [facility] Last Admin: 03/05/21 19:43 Dose: Not Given Documented by: Iopamidol (Iopamidol 755 Mg/Ml 500 Ml Multipack Bottle) 100 ml IVPUSH ONETIME STA Stop: 03/02/21 04:48 Last Admin: 03/02/21 04:48 Dose: 100 ml Documented by: Vancomycin HCl (Pharmacy To Dose - Vancomycin) 1 dose .XX ASDIRECTED LYLE - Exam General: Alert, Oriented, Cooperative HEENT: Mucous Membr. Moist/[place] Neck: Trachea Midline Lungs: Clear to Auscultation, Normal Respiratory Effort Cardiovascular: Regular Rate, Regular Rhythm, No Murmurs GI/Abdominal Exam: Normal Bowel Sounds, Soft, Non-Tender, No Organomegaly - Patient Data Lab Results Last 24 hrs: Laboratory Results - last 24 hr 03/06/21 03/06/21 Range/Units 06:30 06:30 WBC 12.52 H (4.0-11.0) K/uL RBC 4.33 L (4.50-5.90) M/uL Hgb 12.8 L (13.0-17.0) g/dL Hct 38.7 (38.0-50.0) % MCV 89.4 (80.0-98.0) fL MCH 29.6 (27.0-32.0) pg MCHC 33.1 (31.0-37.0) g/dL RDW Std Deviation 45.9 (28.0-62.0) fl RDW Coeff of Tin 14 (11.0-15.0) % Plt Count 754 H (150-400) K/uL MPV 9.40 (7.40-12.00) fL Neut % (Auto) 78.4 (48.0-80.0) % Lymph % (Auto) 11.2 L (16.0-40.0) % Mayes % (Auto) 10.1 (0.0-15.0) % Eos % (Auto) 0.2 (0.0-7.0) % Baso % (Auto) 0.1 (0.0-1.5) % Neut # (Auto) 9.8 H (1.4-5.7) K/uL Lymph # (Auto) 1.4 (0.6-2.4) K/uL Mayes # (Auto) 1.3 H (0.0-0.8) K/uL Eos # (Auto) 0.0 (0.0-0.7) K/uL Baso # (Auto) 0.0 (0.0-0.1) K/uL Nucleated RBC % 0.0 /100WBC Nucleated RBCs # 0 K/uL Sodium 138 (136-148) mmol/L Potassium 4.7 (3.5-5.1) mmol/L Chloride 102 (98-107) mmol/L Carbon Dioxide 27.6 (21.0-32.0) mmol/L BUN 15 (7.0-18.0) mg/dL Creatinine 0.9 (0.8-1.3) mg/dL Est Cr Clr Drug Dosing 100.21 mL/min Estimated GFR (MDRD) > 60.0 ml/min Glucose 195 H (74-106) mg/dL Calcium 8.1 L (8.5-10.1) mg/dL Total Bilirubin 0.3 (0.2-1.0) mg/dL AST 15 (15-37) IU/L ALT 66 H (14-63) IU/L Alkaline Phosphatase 56 (46-116) U/L Total Protein 5.6 L (6.4-8.2) g/dL Albumin 2.3 L (3.4-5.0) g/dL Globulin 3.3 (2.6-4.0) g/dL Albumin/Globulin Ratio 0.7 L (0.9-1.6) Result Diagrams: 03/06/21 06:30 03/06/21 06:30 Artem Results Last 24 hrs: Microbiology 03/03/21 11:30 Aerobic Blood Culture - Preliminary Blood - Venous - Lab Draw NO GROWTH AFTER 3 DAYS Anaerobic Blood Culture - Preliminary NO GROWTH AFTER 3 DAYS 03/03/21 11:20 Aerobic Blood Culture - Preliminary Blood - Venous NO GROWTH AFTER 3 DAYS Anaerobic Blood Culture - Preliminary NO GROWTH AFTER 3 DAYS 03/02/21 04:00 Blood Culture Identification Panel - Final Blood Staphylococcus Coagulase Neg 03/02/21 04:00 Aerobic Blood Culture - Final Blood - Venous - Lab Draw Anaerobic Blood Culture - Preliminary NO GROWTH AFTER 4 DAYS 03/02/21 03:33 Aerobic Blood Culture - Preliminary Blood - Venous NO GROWTH AFTER 4 DAYS Anaerobic Blood Culture - Preliminary NO GROWTH AFTER 4 DAYS Sepsis Event Note - Evaluation Sepsis Screening Result: No Definite Risk - Focused Exam Vital Signs: Vital Signs Temp Pulse Resp BP Pulse Ox 03/06/21 15:21 97 F 83 18 91 L 03/06/21 13:30 93 L 03/06/21 11:30 98.3 F 65 22 H 161/91 H 95 03/06/21 08:47 92 L 03/06/21 07:52 98.0 F 61 22 H 132/78 91 L - Problem List & Annotations (1) Arthritis SNOMED Code(s): 4901348 Code(s): M19.90 - UNSPECIFIED OSTEOARTHRITIS, UNSPECIFIED SITE Status: Acute Current Visit: Yes (2) Pneumonia due to COVID-19 virus SNOMED Code(s): 519581354338915299 Code(s): U07.1 - COVID-19; J12.82 - PNEUMONIA DUE TO CORONAVIRUS DISEASE 2019 Status: Acute Current Visit: Yes (3) Respiratory failure with hypoxia SNOMED Code(s): 16769719558689098 Code(s): J96.91 - RESPIRATORY FAILURE, UNSPECIFIED WITH HYPOXIA Status: Acute Current Visit: Yes (4) Hyperlipidemia SNOMED Code(s): 09176214 Code(s): E78.5 - HYPERLIPIDEMIA, UNSPECIFIED Status: Acute Current Visit: Yes - Problem List Review Problem List Initiated/Reviewed/Updated: Yes - My Orders Last 24 Hours: My Active Orders 03/07/21 05:11 CBC WITH AUTO DIFF [HEME] AM CMP [COMPREHENSIVE METABOLIC PN,CMP] [CHEM] AM - Plan Plan:: 1. Acute respiratory failure secondary to COVID-19 pneumonia -on 2.5 L NC supplemental oxygen, saturating 90-92% -we will continue with dexamethasone and combivent prn. -patient has been put on Combivent every 4 hours as needed for shortness of breath -incentive spirometry in prone position 2. Arthritis of the bilateral shoulders -continue the patient's home dose of meloxicam 15 mg per oral route once a day 3. Hyperlipidemia -continue the patient's home dosage of rosuvastatin 20 mg per oral route once a day 4. GERD -continue pantoprazole 40 mg per oral once a day. <Nichole Esparza - Last Filed: 03/07/21 14:50> - Patient Data Vitals - Most Recent: Last Vital Signs Temp 35.9 C L 03/07/21 13:17 Pulse 75 03/07/21 13:17 Resp 17 03/07/21 13:17 BP 109/72 03/07/21 13:17 Pulse Ox 90 L 03/07/21 13:17 I&O - Last 24 Hours: Intake & Output 03/06/21 03/07/21 03/07/21 22:59 06:59 14:59 Intake Total 1100 1500 1370 Output Total 770 2060 625 Balance 330 -560 745 Lab Results Last 24 Hours: Laboratory Results - last 24 hr 03/07/21 03/07/21 Range/Units 05:35 05:35 WBC 13.19 H (4.0-11.0) K/uL RBC 4.55 (4.50-5.90) M/uL Hgb 13.6 (13.0-17.0) g/dL Hct 40.6 (38.0-50.0) % MCV 89.2 (80.0-98.0) fL MCH 29.9 (27.0-32.0) pg MCHC 33.5 (31.0-37.0) g/dL RDW Std Deviation 45.3 (28.0-62.0) fl RDW Coeff of Tin 14 (11.0-15.0) % Plt Count 771 H (150-400) K/uL MPV 9.50 (7.40-12.00) fL Neut % (Auto) 80.4 H (48.0-80.0) % Lymph % (Auto) 10.2 L (16.0-40.0) % Mayes % (Auto) 9.2 (0.0-15.0) % Eos % (Auto) 0.1 (0.0-7.0) % Baso % (Auto) 0.1 (0.0-1.5) % Neut # (Auto) 10.6 H (1.4-5.7) K/uL Lymph # (Auto) 1.3 (0.6-2.4) K/uL Mayes # (Auto) 1.2 H (0.0-0.8) K/uL Eos # (Auto) 0.0 (0.0-0.7) K/uL Baso # (Auto) 0.0 (0.0-0.1) K/uL Nucleated RBC % 0.0 /100WBC Nucleated RBCs # 0 K/uL Sodium 138 (136-148) mmol/L Potassium 5.2 H (3.5-5.1) mmol/L Chloride 101 (98-107) mmol/L Carbon Dioxide 27.5 (21.0-32.0) mmol/L BUN 16 (7.0-18.0) mg/dL Creatinine 1.0 (0.8-1.3) mg/dL Est Cr Clr Drug Dosing 90.19 mL/min Estimated GFR (MDRD) > 60.0 ml/min Glucose 180 H (74-106) mg/dL Calcium 8.5 (8.5-10.1) mg/dL Total Bilirubin 0.4 (0.2-1.0) mg/dL AST 13 L (15-37) IU/L ALT 69 H (14-63) IU/L Alkaline Phosphatase 61 (46-116) U/L Total Protein 6.1 L (6.4-8.2) g/dL Albumin 2.6 L (3.4-5.0) g/dL Globulin 3.5 (2.6-4.0) g/dL Albumin/Globulin Ratio 0.7 L (0.9-1.6) Artem Results Last 24 Hours: Microbiology 03/03/21 11:30 Aerobic Blood Culture - Preliminary Blood - Venous - Lab Draw NO GROWTH AFTER 4 DAYS Anaerobic Blood Culture - Preliminary NO GROWTH AFTER 4 DAYS 03/03/21 11:20 Aerobic Blood Culture - Preliminary Blood - Venous NO GROWTH AFTER 4 DAYS Anaerobic Blood Culture - Preliminary NO GROWTH AFTER 4 DAYS 03/02/21 04:00 Aerobic Blood Culture - Final Blood - Venous - Lab Draw Anaerobic Blood Culture - Final NO GROWTH AFTER 5 DAYS 03/02/21 03:33 Aerobic Blood Culture - Final Blood - Venous NO GROWTH AFTER 5 DAYS Anaerobic Blood Culture - Final NO GROWTH AFTER 5 DAYS 03/02/21 04:00 Blood Culture Identification Panel - Final Blood Staphylococcus Coagulase Neg Med Orders - Current: Current Medications Albuterol/Ipratropium (Albuterol/Ipratropium 4 Gm Inhalation [place]) 1 gm INH Q4H PRN PRN Reason: Dyspnea Last Admin: 03/07/21 07:30 Dose: 1 puff Documented by: Dexamethasone (Dexamethasone 4 Mg Tab) 6 mg PO DAILY [facility] Last Admin: 03/07/21 09:57 Dose: 6 mg Documented by: Enoxaparin Sodium (Enoxaparin 40 Mg/0.4 Ml Syringe) 40 mg SUBCUT Q24H [facility] Last Admin: 03/07/21 09:57 Dose: 40 mg Documented by: Guaifenesin (Guaifenesin 100 Mg/5 Ml Soln 5 Ml Ud Cup) 100 mg PO Q4H PRN PRN Reason: Cough Meloxicam (Meloxicam 7.5 Mg Tab) 15 mg PO Q24H PRN PRN Reason: Pain Last Admin: 03/03/21 08:38 Dose: 15 mg Documented by: Pantoprazole Sodium (Pantoprazole 40 Mg Tab.Cr) 40 mg PO ACBREAKFAST LYLE Last Admin: 03/07/21 07:29 Dose: 40 mg Documented by: Rosuvastatin Calcium (Rosuvastatin 10 Mg Tab) 20 mg PO BEDTIME [place]YLE Last Admin: 03/06/21 21:10 Dose: 20 mg Documented by: Sodium Chloride (Sodium Chloride 0.9% 10 Ml Syringe) 10 ml FLUSH ASDIRECTED PRN PRN Reason: Keep Vein Open Last Admin: 03/02/21 03:35 Dose: 10 ml Documented by: Sodium Chloride (Sodium Chloride 0.9% 2.5 Ml Syringe) 2.5 ml FLUSH ASDIRECTED PRN PRN Reason: Keep Vein Open Last Admin: 03/02/21 03:35 Dose: 2.5 ml Documented by: Discontinued Medications Dexamethasone (Dexamethasone 10 Mg/Ml Sdv) 10 mg IVPUSH ONETIME ONE Stop: 03/02/21 03:36 Last Admin: 03/02/21 03:54 Dose: 10 mg Documented by: Guaifenesin/Dextromethorphan (Guaifenesin/Dextromethorphan 100-10 Mg/5 Ml Soln 10 Ml Cup) 10 ml PO Q4H PRN PRN Reason: Cough Last Admin: 03/06/21 18:12 Dose: 10 ml Documented by: Sodium Chloride (Normal Saline) 1,000 mls @ 999 mls/hr IV .Bolus ONE Stop: 03/02/21 04:15 Last Admin: 03/02/21 03:35 Dose: 999 mls/hr Documented by: Remdesivir 200 mg/ Sodium (Chloride) 250 mls @ 250 mls/hr IV ONETIME ONE Stop: 03/02/21 03:36 Last Admin: 03/02/21 05:07 Dose: 250 mls/hr Documented by: Remdesivir 100 mg/ Sodium (Chloride) 100 mls @ 100 mls/hr IV Q24H [facility] Stop: 03/06/21 05:59 Last Admin: 03/06/21 04:44 Dose: 100 mls/hr Documented by: Vancomycin HCl 1.5 gm/ Premix 300 mls @ 200 mls/hr IV Q8H [facility] Last Admin: 03/05/21 08:22 Dose: Not Given Documented by: Vancomycin HCl 1.75 gm/ Premix 350 mls @ 200 mls/hr IV Q8H [facility] Last Admin: 03/05/21 19:43 Dose: Not Given Documented by: Iopamidol (Iopamidol 755 Mg/Ml 500 Ml Multipack Bottle) 100 ml IVPUSH ONETIME STA Stop: 03/02/21 04:48 Last Admin: 03/02/21 04:48 Dose: 100 ml Documented by: Vancomycin HCl (Pharmacy To Dose - Vancomycin) 1 dose .XX ASDIRECTED [facility] - Patient Data Lab Results Last 24 hrs: Laboratory Results - last 24 hr 03/07/21 03/07/21 Range/Units 05:35 05:35 WBC 13.19 H (4.0-11.0) K/uL RBC 4.55 (4.50-5.90) M/uL Hgb 13.6 (13.0-17.0) g/dL Hct 40.6 (38.0-50.0) % MCV 89.2 (80.0-98.0) fL MCH 29.9 (27.0-32.0) pg MCHC 33.5 (31.0-37.0) g/dL RDW Std Deviation 45.3 (28.0-62.0) fl RDW Coeff of Tin 14 (11.0-15.0) % Plt Count 771 H (150-400) K/uL MPV 9.50 (7.40-12.00) fL Neut % (Auto) 80.4 H (48.0-80.0) % Lymph % (Auto) 10.2 L (16.0-40.0) % Mayes % (Auto) 9.2 (0.0-15.0) % Eos % (Auto) 0.1 (0.0-7.0) % Baso % (Auto) 0.1 (0.0-1.5) % Neut # (Auto) 10.6 H (1.4-5.7) K/uL Lymph # (Auto) 1.3 (0.6-2.4) K/uL Mayes # (Auto) 1.2 H (0.0-0.8) K/uL Eos # (Auto) 0.0 (0.0-0.7) K/uL Baso # (Auto) 0.0 (0.0-0.1) K/uL Nucleated RBC % 0.0 /100WBC Nucleated RBCs # 0 K/uL Sodium 138 (136-148) mmol/L Potassium 5.2 H (3.5-5.1) mmol/L Chloride 101 (98-107) mmol/L Carbon Dioxide 27.5 (21.0-32.0) mmol/L BUN 16 (7.0-18.0) mg/dL Creatinine 1.0 (0.8-1.3) mg/dL Est Cr Clr Drug Dosing 90.19 mL/min Estimated GFR (MDRD) > 60.0 ml/min Glucose 180 H (74-106) mg/dL Calcium 8.5 (8.5-10.1) mg/dL Total Bilirubin 0.4 (0.2-1.0) mg/dL AST 13 L (15-37) IU/L ALT 69 H (14-63) IU/L Alkaline Phosphatase 61 (46-116) U/L Total Protein 6.1 L (6.4-8.2) g/dL Albumin 2.6 L (3.4-5.0) g/dL Globulin 3.5 (2.6-4.0) g/dL Albumin/Globulin Ratio 0.7 L (0.9-1.6) Result Diagrams: 03/07/21 05:35 03/07/21 05:35 Artem Results Last 24 hrs: Microbiology 03/03/21 11:30 Aerobic Blood Culture - Preliminary Blood - Venous - Lab Draw NO GROWTH AFTER 4 DAYS Anaerobic Blood Culture - Preliminary NO GROWTH AFTER 4 DAYS 03/03/21 11:20 Aerobic Blood Culture - Preliminary Blood - Venous NO GROWTH AFTER 4 DAYS Anaerobic Blood Culture - Preliminary NO GROWTH AFTER 4 DAYS 03/02/21 04:00 Aerobic Blood Culture - Final Blood - Venous - Lab Draw Anaerobic Blood Culture - Final NO GROWTH AFTER 5 DAYS 03/02/21 03:33 Aerobic Blood Culture - Final Blood - Venous NO GROWTH AFTER 5 DAYS Anaerobic Blood Culture - Final NO GROWTH AFTER 5 DAYS 03/02/21 04:00 Blood Culture Identification Panel - Final Blood Staphylococcus Coagulase Neg Sepsis Event Note - Focused Exam Vital Signs: Vital Signs Temp Pulse Resp BP Pulse Ox 03/07/21 13:17 35.9 C L 75 17 109/72 90 L 03/07/21 09:39 36.9 C 76 18 121/64 90 L 03/07/21 05:00 36.3 C 14 105/77 90 L - My Orders Last 24 Hours: My Active Orders 03/07/21 11:07 Ready for Discharge [RC] PER UNIT ROUTINE - Plan Plan:: I have seen and evaluated the patient and agree with the residents note unless specified in my note
[2021-03-06] MEDS: Rosuvastatin 10 MG Tab PO SCH (21:10)
[2021-03-07] MEDS: Albuterol/Ipratropium 4 GM Inhalation Spray INH PRN ×2 (01:30→07:30)
[2021-03-07 06:41] LABS: BLOOD UREA NITROGEN,BUN 16 mg/dL (7.0-18.0); CARBON DIOXIDE,CO2 27.5 mmol/L (21.0-32.0); CHLORIDE,CL 101 mmol/L (98-107); GLUCOSE RANDOM 180 mg/dL (74-106); POTASSIUM,K 5.2 mmol/L (3.5-5.1); SODIUM,NA 138 mmol/L (136-148)
[2021-03-07] MEDS: Pantoprazole 40 MG Tab.CR PO SCH (07:29)
[2021-03-07] MEDS: Dexamethasone 4 MG Tab PO SCH (09:57)
[2021-03-07] MEDS: Enoxaparin 40 MG/0.4 ML Syringe SUBCUT SCH (09:57)
[2021-03-07] MEDS ORDERED: guaiFENesin 100 MG/5 ML Soln 5 ML UD Cup PO PRN (12:00)
[2021-03-07 13:19] VITALS: BP 109/72; PULSE 75
--- NOTE | 2021-03-07 14:36 | PCM.DCSUM1 ---
Discharge Summary - Hospital Course Free Text/Narrative:: The patient is a 61-year-old male on day 1 of admission who has a significant past medical history of GERD, arthritis of the bilateral shoulders, Pang's esophagus, rheumatic fever, and hyperlipidemia. He was admitted to the service due to acute respiratory failure secondary to COVID-19 pneumonia. On 02/24 the patient was diagnosed with COVID-19, received Regeneron therapy on an outpatient basis on 02/26 and 03/01. He admits to a 5-day history of worsening shortness of breath, worse with exertion, and cough productive of clear sputum with occasional yellow discoloration. For the shortness of breath and cough he went to his PCP last week and received azithromycin treatment and completed the course. He was also suffering from diarrhea for the past 5 days which is nonbloody, however it has subsided but today he complains of gas. He has had no recorded fever or chills. Upon entry to the hospital the patient was hypoxic with a oxygen saturation of 81% on room air, and was put on face mask which increased his saturation to 91%. Currently he is saturating 90% on 13 L. The patient is eating and drinking without any issues. Upon interview, he denies chest pain, palpitations, abdominal pain, loss of taste or smell, and has no issues with urination. In the emergency room, the patient had labs drawn more specifically a CBC which was unremarkable except increased platelets, a CMP which showed decreased chloride, increase glucose, increased AST and ALT, and a urinalysis which showed urine ketones. He also received one dose of remdesivir 200 mg IV and one dose of Decadron 10 mg IV. He also had a CT angiogram of the chest done to rule out pulmonary embolism. No pulmonary embolism was found upon imaging however ground glass appearances of the lungs bilaterally was seen, pointing towards a diagnosis of COVID-19 pneumonia. Patient was admitted to the hospital for management of acute hypoxic respiratory failure secondary to Covid pneumonia. Patient was started on IV remdesivir, oral baricitinib given that he was requir ing 10 L of high flow oxygen and his CRP was elevated as well. Patient was also started on Combivent for shortness of breath, Lovenox for DVT prophylaxis as well as cough suppressant. Over the next 2 days patient's oxygen requirement improved and eventually he was weaned down to 2 L of oxygen on rest. He finished his remdesivir doses and was hemodynamically stable for discharge to home on home oxygen along with remaining doses of dexamethasone as well. Patient was given strict instructions to come back to the ER in case his oxygen requirement went back up or he started feeling increasing short of breath or chest pain. Patient was recommended to follow-up with his PCP after his quarantine period was complete. Diagnosis: Stroke: No - Discharge Data Discharge Date: 03/07/21 Discharge Disposition: Home, Self-Care 01 Condition: Good - Referral to Home Health Primary Care Physician: Jamal Mancera MD - Patient Instructions Diet: Usual Diet as Tolerated Activity: As Tolerated Driving: May Drive Today Showering/Bathing: October Shower Notify Provider of: Fever, Increased Pain, Swelling and Redness, Drainage, Nausea and/or Vomiting - Discharge Plan *PRESCRIPTION DRUG MONITORING PROGRAM REVIEWED*: No *COPY OF PRESCRIPTION DRUG MONITORING REPORT IN PATIENT RUBENS: No Prescriptions/Med Rec: Albuterol/Ipratropium [Combivent Respimat] 1 gm INH Q4H PRN #1 inhaler PRN Reason: Dyspnea dexAMETHasone [Dexamethasone] 6 mg PO DAILY #5 tablet Dextromethorphan/guaiFENesin [Robitussin DM] 10 ml PO Q4H PRN #1 bottle PRN Reason: Cough Home Medications: Home Meds Meloxicam 15 mg PO DAILY PRN 08/01/18 [History] Omeprazole 40 mg PO ACBREAKFAST 08/01/18 [History] Turmeric 400 mg PO DAILY 08/29/19 [History] Cholecalciferol (Vitamin D3) [Vitamin D3] 1,000 unit PO DAILY 10/07/20 [History] Rosuvastatin Calcium 20 mg PO DAILY 10/07/20 [History] Fluticasone Propionate 2 sprays NASBOTH DAILY PRN 03/02/21 [History] Albuterol/Ipratropium [Combivent Respimat] 1 gm INH Q4H PRN #1 inhaler 03/07/21 [Rx] Dextromethorphan/guaiFENesin [Robitussin DM] 10 ml PO Q4H PRN #1 bottle 03/07/21 [Rx] dexAMETHasone [Dexamethasone] 6 mg PO DAILY #5 tablet 03/07/21 [Rx] Patient Handouts: Ipratropium; Albuterol Inhalation [place] (Combivent Respimat), COVID-19, COVID-19 Vaccine Information, Dextromethorphan; Guaifenesin oral solution, COVID-19: Quarantine vs. Isolation - [facility] (05/22/2020), Dexamethasone tablets Forms: ED Department Discharge Referrals: Jamal Mancera MD [Primary Care Provider] - 03/18/21 1:00 pm - Discharge Summary/Plan Comment DC Time >30 min.: No Total # of Minutes for Discharge Time: 20 - Patient Data Vitals - Most Recent: Last Vital Signs Temp 35.9 C L 03/07/21 13:17 Pulse 75 03/07/21 13:17 Resp 17 03/07/21 13:17 BP 109/72 03/07/21 13:17 Pulse Ox 90 L 03/07/21 13:17 Weight - Most Recent: 95.708 kg I&O - Last 24 hours: Intake & Output 03/06/21 03/07/21 03/07/21 22:59 06:59 14:59 Intake Total 1100 1500 1370 Output Total 770 2060 625 Balance 330 -560 745 Lab Results - Last 24 hrs: Laboratory Results - last 24 hr 03/07/21 03/07/21 Range/Units 05:35 05:35 WBC 13.19 H (4.0-11.0) K/uL RBC 4.55 (4.50-5.90) M/uL Hgb 13.6 (13.0-17.0) g/dL Hct 40.6 (38.0-50.0) % MCV 89.2 (80.0-98.0) fL MCH 29.9 (27.0-32.0) pg MCHC 33.5 (31.0-37.0) g/dL RDW Std Deviation 45.3 (28.0-62.0) fl RDW Coeff of Tin 14 (11.0-15.0) % Plt Count 771 H (150-400) K/uL MPV 9.50 (7.40-12.00) fL Neut % (Auto) 80.4 H (48.0-80.0) % Lymph % (Auto) 10.2 L (16.0-40.0) % [place] % (Auto) 9.2 (0.0-15.0) % Eos % (Auto) 0.1 (0.0-7.0) % Baso % (Auto) 0.1 (0.0-1.5) % Neut # (Auto) 10.6 H (1.4-5.7) K/uL Lymph # (Auto) 1.3 (0.6-2.4) K/uL [place] # (Auto) 1.2 H (0.0-0.8) K/uL Eos # (Auto) 0.0 (0.0-0.7) K/uL Baso # (Auto) 0.0 (0.0-0.1) K/uL Nucleated RBC % 0.0 /100WBC Nucleated RBCs # 0 K/uL Sodium 138 (136-148) mmol/L Potassium 5.2 H (3.5-5.1) mmol/L Chloride 101 (98-107) mmol/L Carbon Dioxide 27.5 (21.0-32.0) mmol/L BUN 16 (7.0-18.0) mg/dL Creatinine 1.0 (0.8-1.3) mg/dL Est Cr Clr Drug Dosing 90.19 mL/min Estimated GFR (MDRD) > 60.0 ml/min Glucose 180 H (74-106) mg/dL Calcium 8.5 (8.5-10.1) mg/dL Total Bilirubin 0.4 (0.2-1.0) mg/dL AST 13 L (15-37) IU/L ALT 69 H (14-63) IU/L Alkaline Phosphatase 61 (46-116) U/L Total Protein 6.1 L (6.4-8.2) g/dL Albumin 2.6 L (3.4-5.0) g/dL Globulin 3.5 (2.6-4.0) g/dL Albumin/Globulin Ratio 0.7 L (0.9-1.6) MEREDITH Results - Last 24 hrs: Microbiology 03/03/21 11:30 Aerobic Blood Culture - Preliminary Blood - Venous - Lab Draw NO GROWTH AFTER 4 DAYS Anaerobic Blood Culture - Preliminary NO GROWTH AFTER 4 DAYS 03/03/21 11:20 Aerobic Blood Culture - Preliminary Blood - Venous NO GROWTH AFTER 4 DAYS Anaerobic Blood Culture - Preliminary NO GROWTH AFTER 4 DAYS 03/02/21 04:00 Aerobic Blood Culture - Final Blood - Venous - Lab Draw Anaerobic Blood Culture - Final NO GROWTH AFTER 5 DAYS 03/02/21 03:33 Aerobic Blood Culture - Final Blood - Venous NO GROWTH AFTER 5 DAYS Anaerobic Blood Culture - Final NO GROWTH AFTER 5 DAYS 03/02/21 04:00 Blood Culture Identification Panel - Final Blood Staphylococcus Coagulase Neg Med Orders - Current: Current Medications Albuterol/Ipratropium (Albuterol/Ipratropium 4 Gm Inhalation [place]) 1 gm INH Q4H PRN PRN Reason: Dyspnea Last Admin: 03/07/21 07:30 Dose: 1 puff Documented by: Dexamethasone (Dexamethasone 4 Mg Tab) 6 mg PO DAILY PENDING SALE TO [facility] Last Admin: 03/07/21 09:57 Dose: 6 mg Documented by: Enoxaparin Sodium (Enoxaparin 40 Mg/0.4 Ml Syringe) 40 mg SUBCUT Q24H PENDING SALE TO [facility] Last Admin: 03/07/21 09:57 Dose: 40 mg Documented by: Guaifenesin (Guaifenesin 100 Mg/5 Ml Soln 5 Ml Ud Cup) 100 mg PO Q4H PRN PRN Reason: Cough Meloxicam (Meloxicam 7.5 Mg Tab) 15 mg PO Q24H PRN PRN Reason: Pain Last Admin: 03/03/21 08:38 Dose: 15 mg Documented by: Pantoprazole Sodium (Pantoprazole 40 Mg Tab.Cr) 40 mg PO ACBREAKFAST PENDING SALE TO [facility] Last Admin: 03/07/21 07:29 Dose: 40 mg Documented by: Rosuvastatin Calcium (Rosuvastatin 10 Mg Tab) 20 mg PO BEDTIME PENDING SALE TO [facility] Last Admin: 03/06/21 21:10 Dose: 20 mg Documented by: Sodium Chloride (Sodium Chloride 0.9% 10 Ml Syringe) 10 ml FLUSH ASDIRECTED PRN PRN Reason: Keep Vein Open Last Admin: 03/02/21 03:35 Dose: 10 ml Documented by: Sodium Chloride (Sodium Chloride 0.9% 2.5 Ml Syringe) 2.5 ml FLUSH ASDIRECTED PRN PRN Reason: Keep Vein Open Last Admin: 03/02/21 03:35 Dose: 2.5 ml Documented by: Discontinued Medications Dexamethasone (Dexamethasone 10 Mg/Ml Sdv) 10 mg IVPUSH ONETIME ONE Stop: 03/02/21 03:36 Last Admin: 03/02/21 03:54 Dose: 10 mg Documented by: Guaifenesin/Dextromethorphan (Guaifenesin/Dextromethorphan 100-10 Mg/5 Ml Soln 10 Ml Cup) 10 ml PO Q4H PRN PRN Reason: Cough Last Admin: 03/06/21 18:12 Dose: 10 ml Documented by: Sodium Chloride (Normal Saline) 1,000 mls @ 999 mls/hr IV .Bolus ONE Stop: 03/02/21 04:15 Last Admin: 03/02/21 03:35 Dose: 999 mls/hr Documented by: Remdesivir 200 mg/ Sodium (Chloride) 250 mls @ 250 mls/hr IV ONETIME ONE Stop: 03/02/21 03:36 Last Admin: 03/02/21 05:07 Dose: 250 mls/hr Documented by: Remdesivir 100 mg/ Sodium (Chloride) 100 mls @ 100 mls/hr IV Q24H LYLE Stop: 03/06/21 05:59 Last Admin: 03/06/21 04:44 Dose: 100 mls/hr Documented by: Vancomycin HCl 1.5 gm/ Premix 300 mls @ 200 mls/hr IV Q8H PENDING SALE TO [facility] Last Admin: 03/05/21 08:22 Dose: Not Given Documented by: Vancomycin HCl 1.75 gm/ Premix 350 mls @ 200 mls/hr IV Q8H PENDING SALE TO [facility] Last Admin: 03/05/21 19:43 Dose: Not Given Documented by: Iopamidol (Iopamidol 755 Mg/Ml 500 Ml Multipack Bottle) 100 ml IVPUSH ONETIME STA Stop: 03/02/21 04:48 Last Admin: 03/02/21 04:48 Dose: 100 ml Documented by: Vancomycin HCl (Pharmacy To Dose - Vancomycin) 1 dose .XX ASDIRECTED PENDING SALE TO [facility]
== END 2021-03-07 15:05 | disposition home or self-care (01) | DRG 177 ==
LOC: MW.ED 03:00 → MW.MS 05:25
PROVIDERS: ADMIT Internal Medicine; ATTEND Internal Medicine
PROC: XW033E5 Introduction of Remdesivir Anti-infective into Peripheral Vein, Percutaneous Approach, New Technology Group 5 (ICD-10-PCS; principal; 2021-03-02)
PROC: XW0DXM6 Introduction of Baricitinib into Mouth and Pharynx, External Approach, New Technology Group 6 (ICD-10-PCS; 2021-03-02)
PROC: 3E0333Z Introduction of Anti-inflammatory into Peripheral Vein, Percutaneous Approach (ICD-10-PCS; 2021-03-02)
PROC: 3E0DX3Z Introduction of Anti-inflammatory into Mouth and Pharynx, External Approach (ICD-10-PCS; 2021-03-03)
DX: U07.1 COVID-19 (principal); J12.82 Pneumonia due to coronavirus disease 2019; J96.01 Acute respiratory failure with hypoxia; M19.012 Primary osteoarthritis, left shoulder; M19.011 Primary osteoarthritis, right shoulder; E78.5 Hyperlipidemia, unspecified; K21.9 Gastro-esophageal reflux disease without esophagitis; K22.70 Barrett's esophagus without dysplasia; I00 Rheumatic fever without heart involvement; Z79.899 Other long term (current) drug therapy; Z87.891 Personal history of nicotine dependence
CPT/HCPCS: 36415; 71275; 71275-26; 80053; 80202; 81003; 82248; 84484; 85025; 86140; 87040; 87077; 87150; 87186; 93005; 96374; 99285-25; A9270-GY; J1100; J1650; J3370; J7030; J7050; J8540; Q9967; U0002